=== PATIENT | male | born 1945 | race Caucasian/White ===

== ENCOUNTER 2024-06-01 17:24 | Inpatient (IN) | payer MEDICARE, OTHER, SELFPAY ==
[2024-06-01 17:25] VITALS: BP 125/90; PULSE 84; RESP 18; TEMP 36.8; O2SAT 99
--- NOTE | 2024-06-01 17:30 | RAD_ITS ---
PROCEDURE: CHEST PA AND LATERAL 06/01/2024 REASON FOR EXAM: STROKE TECHNIQUE: Frontal and lateral views of the chest. FINDINGS: Hardware: None Heart: The heart size is normal. Mediastinum: The mediastinal contour is unremarkable. Lungs: The lungs are clear. Bones: The bones are unremarkable. RAD/Chest PA and Lateral IMPRESSION: NEGATIVE CHEST Reading Location: [id number]
--- NOTE | 2024-06-01 17:30 | EKG12_ITS ---
Test Reason : GEN ILL Blood Pressure : */* mmHG Vent. Rate : 76 BPM Atrial Rate : 76 BPM P-R Int : 166 ms QRS Dur : 92 ms QT Int : 402 ms P-R-T Axes : 9 53 14 degrees QTcB Int : 452 ms Normal sinus rhythm Normal ECG Confirmed by Hector Wild ([id number]), video effects editor MANDO DONOHUE ([id number]) on 06/04/2024 6:54:47 AM Referred By: Confirmed By: Hector Wild
[2024-06-01 18:28] LABS: Absolute Lymphocyte Count 2.31 X10^3/uL (0.83-4.51); Absolute Neutrophil Count 6.1 X10^3/uL (2.0-7.7); Basophil# 0.06 X10^3/uL; Basophil% 0.6 % (0-1); Eosinophil# 0.05 X10^3/uL; Eosinophils% 0.5 % (0-5); Hematocrit 45.7 % (40-54); Lymphocyte # 2.31 X10^3/ul (0.83-4.51); Lymphocyte % 24.7 % (19-41); Mean Corpuscular Hgb 29.4 pg (27.0-32.0); Mean Platelet Vol. 9.6 fl (6.2-12.0); Monocyte# 0.76 X10^3/uL; Monocyte% 8.1 % (0-10); NRBC Flagged by Analyzer 0 % (0-5); Neutrophil # 6.12 X10^3/uL (2.7-7.7); Neutrophil % 65.6 % (47-70); Platelet Count 242 K/mm3 (150-450); RBC Distribution Width CV 14.1 % (11.6-14.6); RBC Distribution Width SD 42.9 fl (35.1-43.9); Red Blood Count 5.44 M/mm3 (4.6-6.2); White Blood Count 9.4 K/mm3 (4.4-11.0)
[2024-06-01 18:39] LABS: Prothrombin Time (Protime)PT. 13.3 SECONDS (11.7-14.9)
[2024-06-01 19:01] LABS: Anion Gap 13 (5-15); BUN 16 mg/dL (4-19); BUN/Creat Ratio 17.2 RATIO (10-20); Calcium,Total 9.3 mg/dL (7.6-11.0); Carbon Dioxide 19.8 mmol/L (21.0-32.0); Chloride 98 mmol/L (98-108); Creatinine, Serum 0.93 mg/dL (0.70-1.20); EST Glomerular Filtration Rate 85 (>60); Glucose 100 mg/dL (70-99); Potassium 4.5 mmol/L (3.3-5.1); Sodium Level 130 mmol/L (133-145)
--- NOTE | 2024-06-01 19:56 | EX.ED.DYSGE1 ---
HPI <Dr. Marc Betancourt DO - Last Filed: 06/01/24 23:35> History of Present Illness Chief Complaint: General Illness Informant: patient Onset/Context/Timing Onset: Weeks Context: Gradual Onset Timing: Continuous Quality: Weak, shaky Location: Generalized Worsened by: Nothing Relieved by: Nothing Narrative Narrative: Patient presents with generalized muscle pain that has been getting worse for the past 1-1/2 weeks. Patient states it is gradually getting worse. Patient states he feels weak and shaky. Patient states nothing makes it better and nothing makes it worse. Patient states he has been seen for this at a different emergency department. Patient states he was diagnosed with sinusitis and was placed on a nasal spray and decongestant. Patient states he was taking that with no relief. Patient states he followed up with his primary care physician who prescribed him doxycycline for the sinus infection. Patient states this has not helped. Patient admits to some subjective chills. Patient states he followed up with his managing director atlas today for his routine glaucoma check. Patient states that his managing director atlas told him to come to the emergency department for further evaluation because he does not look well. Patient admits to some nausea and vomiting. Patient mitts to decreased urine output. Patient admits to headache. PFSH <Dr. Marc Betancourt DO - Last Filed: 06/01/24 23:35> PFSH Medical History (Updated 06/02/24 @ 00:[address] Dallas Henderson DO) Hypercholesterolemia Glaucoma Allergy/AdvReac Type Severity Reaction Status Date / Time brimonidine Allergy Intermediate Itching Verified 06/01/24 17:27 sildenafil (From Viagra) AdvReac Intermediate HEADACHE Verified 06/01/24 17:27 Surgical History (Updated 06/01/24 @ 22:[address] Marc Betancourt DO) Status post glaucoma surgery Hx of inguinal herniorrhaphy Social History Smoking Status: Never smoker ROS <Dr. Marc Betancourt DO - Last Filed: 06/01/24 23:35> ROS ED Constitutional Constitutional ED: Reports chills; Denies fever(s) Eyes Eyes: Reports blurry vision; Denies change in vision ENT ENT ED: Denies rhinorrhea or sore throat Cardiovascular Cardiovascular: Denies chest pain or palpitations Respiratory/Chest Respiratory/Chest: Denies cough or dyspnea Gastrointestinal Gastrointestinal: Reports nausea and vomiting Genitourinary Genitourinary ED: Denies dysuria or hematuria Musculoskeletal Musculoskeletal: Reports myalgias Integumentary Denies abscess or rash Neurologic Neurologic: Reports headache(s); Denies weakness Allergic/Immunologic Allergic/Immunologic ED: Denies mouth swelling or urticaria EXAM <Dr. Marc Betancourt, DO - Last Filed: 06/01/24 23:35> Physical Exam Const Vital Signs: 06/01/24 17:25 06/01/24 21:06 06/01/24 21:06 Temperature 98.2 F Temperature Source Temporal Pulse Rate 84 82 Respiratory Rate 18 13 Respiratory Effort Normal Respiratory Pattern Normal Blood Pressure 125/90 H 118/80 Blood Pressure Mean 101 92 Pulse Ox 99 98 Oxygen Delivery Method Room Air 06/01/24 23:07 Temperature Temperature Source Pulse Rate Respiratory Rate Respiratory Effort Respiratory Pattern Blood Pressure 138/79 H Blood Pressure Mean 98 Pulse Ox Oxygen Delivery Method Positive well nourished and well developed General Appearance ED: well developed and NAD HEENT Reports moist mucous membranes Neck supple and no JVD Resp normal respiratory effort and clear to auscultation bilaterally Cardio regular rate and regular rhythm GI non-tender and non-distended Palpation: soft Extremity normal to inspection General Extremety ED: Negative for edema or tenderness General Extremity: Negative for edema Neuro oriented x3, CN's II-XII intact bilaterally and no sensory deficits noted Sensorium / Orientation: alert Motor Exam: general weakness Psych mental status grossly normal <Dr. Dallas Henderson, DO - Last Filed: 06/02/24 00:20> Physical Exam Const Vital Signs: 06/01/24 17:25 06/01/24 21:06 06/01/24 21:06 Temperature 98.2 F Temperature Source Temporal Pulse Rate 84 82 Respiratory Rate 18 13 Respiratory Effort Normal Respiratory Pattern Normal Blood Pressure 125/90 H 118/80 Blood Pressure Mean 101 92 Pulse Ox 99 98 Oxygen Delivery Method Room Air 06/01/24 23:07 Temperature Temperature Source Pulse Rate Respiratory Rate Respiratory Effort Respiratory Pattern Blood Pressure 138/79 H Blood Pressure Mean 98 Pulse Ox Oxygen Delivery Method MDM <Dr. Marc Betancourt, DO - Last Filed: 06/01/24 23:35> [facility] Narrative Medical decision making narrative: Differential diagnosis includes cardiac dysrhythmia, cardiac ischemia, pneumonia, stroke, electrolyte abnormality, coagulopathy, urinary tract infection, and viral illness. EKG will be obtained to assess for cardiac dysrhythmia and cardiac ischemia. Chest x-ray will be obtained to assess for pneumonia and bronchitis. CT scan of the brain will be obtained to assess for stroke and intracranial bleeding. CBC will be obtained to assess for leukocytosis and anemia. Basic metabolic profile will be obtained to assess for electrolyte abnormality and renal function. PT with INR PTT will be obtained to assess for coagulopathy. Urinalysis will be obtained to assess for urinary tract infection and hematuria. COVID-19, influenza, and RSV PCR will be obtained to assess for viral illness. Lab Data Attestation: I reviewed the patient's lab results. Lab results narrative: CBC was reviewed and was within normal limits. Basic metabolic profile was reviewed. Sodium was slightly low at 130. Glucose was 100. The remainder was essentially within normal limits. PT with INR and PTT were reviewed and were within normal limits. Initial high-sensitivity troponin was reviewed and was 25. Urinalysis was reviewed. There is no evidence of urinary tract infection or hematuria. Labs: Laboratory Results - last 24 hr 06/01/24 06/01/24 06/01/24 18:06 22:40 23:23 WBC 9.4 RBC 5.44 Hgb 16.0 Hct 45.7 MCV 84.0 MCH 29.4 MCHC 35.0 RDW Std Deviation 42.9 RDW Coeff of Tj 14.1 Plt Count 242 MPV 9.6 Immature Gran % (Auto) 0.500 Neut % (Auto) 65.6 Lymph % (Auto) 24.7 Young % (Auto) 8.1 Eos % (Auto) 0.5 Baso % (Auto) 0.6 Absolute Neuts (auto) 6.1 Absolute Lymphs (auto) 2.31 Nucleated RBC % 0 PT 13.3 INR 1.0 APTT 26.3 Sodium 130 L Potassium 4.5 Chloride 98 Carbon Dioxide 19.8 L Anion Gap 13 BUN 16 Creatinine 0.93 Est GFR (MDRD) Non-Af 85 BUN/Creatinine Ratio 17.2 Glucose 100 H Calcium 9.3 Troponin T High Sens 25 H Cancelled Troponin T Hi Sens 2 Hr 23 H Urine Color Yellow Urine Clarity Clear Urine pH 6.5 Ur Specific [place] 1.015 Urine Protein 15 H Urine Glucose (UA) Normal Urine Ketones 50 H Urine Occult Blood Negative Urine Nitrite Negative Urine Bilirubin Negative Urine Urobilinogen 1 H Ur Leukocyte Esterase Negative Urine RBC 0 SEEN Urine WBC 0-5 SEEN Ur Squamous Epith Cells 0 SEEN Urine Bacteria 1+ Urine Mucus 0 SEEN Radiography Chest X-Ray - ED: 2 View, Read by ED Physician, Read by Radiologist and No Acute Disease Diagnostic Testing: Clinical Impression(s) from Imaging Studies Chest X-Ray 06/01/24 17:30 IMPRESSION: NEGATIVE CHEST Reading Location: [id number] Brain CT 06/01/24 20:19 IMPRESSION: NO ACUTE FINDINGS [facility] chest x-ray was obtained. There are 2 views. On my independent interpretation, lung samaniego are clear. There is normal cardiac silhouette. Bony thorax is normal. There is no acute process noted. Radiologist also interpreted the x-ray and agrees. CT scan of the brain was obtained. There is no acute intracranial abnormality. This was interpreted by the radiologist and was also independently reviewed by myself. EKG Initial EKG: Attestation: I personally reviewed and interpreted this EKG as follows: Interpretation: Sinus Rhythm (76) and No Acute Injury Pattern Comments: EKG was obtained. On my independent interpretation, it showed a normal sinus rhythm with a rate of 76. IN interval, QRS interval, and QTc intervals were all normal. [place] was normal. There are no acute ST or T wave changes. Prior EKG tracings: not available for review Prior: No Prior Treatment and Re-Evaluation :: Patient was given IV fluids. Patient was advised of his findings. Patient ambulated here in the emergency department. Patient was somewhat unsteady. Patient states he has access to a walker at home and would prefer to go home. Patient was advised of the repeat troponin test. If the repeat troponin is also elevated, would recommend admission to the hospital for further evaluation. Since the patient wants to go home and does not want to be admitted to the hospital, if the repeat troponin is normal, I would agree with discharging the patient. Family does have concerns that the patient would not be able to go up stairs at home. I did offer admission to the hospital for physical therapy. Family will discuss this while waiting for the repeat troponin. Care of the patient will be turned over to the oncoming physician pending repeat troponin results. <Dr. Dallas Henderson, DO - Last Filed: 06/02/24 00:20> [facility] Lab Data Labs: Laboratory Results - last 24 hr 06/01/24 06/01/24 06/01/24 18:06 22:40 23:23 WBC 9.4 RBC 5.44 Hgb 16.0 Hct 45.7 MCV 84.0 MCH 29.4 MCHC 35.0 RDW Std Deviation 42.9 RDW Coeff of Tj 14.1 Plt Count 242 MPV 9.6 Immature Gran % (Auto) 0.500 Neut % (Auto) 65.6 Lymph % (Auto) 24.7 Young % (Auto) 8.1 Eos % (Auto) 0.5 Baso % (Auto) 0.6 Absolute Neuts (auto) 6.1 Absolute Lymphs (auto) 2.31 Nucleated RBC % 0 PT 13.3 INR 1.0 APTT 26.3 Sodium 130 L Potassium 4.5 Chloride 98 Carbon Dioxide 19.8 L Anion Gap 13 BUN 16 Creatinine 0.93 Est GFR (MDRD) Non-Af 85 BUN/Creatinine Ratio 17.2 Glucose 100 H Calcium 9.3 Troponin T High Sens 25 H Cancelled Troponin T Hi Sens 2 Hr 23 H Urine Color Yellow Urine Clarity Clear Urine pH 6.5 Ur Specific [place] 1.015 Urine Protein 15 H Urine Glucose (UA) Normal Urine Ketones 50 H Urine Occult Blood Negative Urine Nitrite Negative Urine Bilirubin Negative Urine Urobilinogen 1 H Ur Leukocyte Esterase Negative Urine RBC 0 SEEN Urine WBC 0-5 SEEN Ur Squamous Epith Cells 0 SEEN Urine Bacteria 1+ Urine Mucus 0 SEEN Radiography Diagnostic Testing: Clinical Impression(s) from Imaging Studies Chest X-Ray 06/01/24 17:30 IMPRESSION: NEGATIVE CHEST Reading Location: [id number] Brain CT 06/01/24 20:19 IMPRESSION: NO ACUTE FINDINGS Reading Location: [facility] Management Discussion w/another healthcare provider: Hospitalist Treatment and Re-Evaluation :: Patient was given IV fluids. Patient was advised of his findings. Patient ambulated here in the emergency department. Patient was somewhat unsteady. Patient states he has access to a walker at home and would prefer to go home. Patient was advised of the repeat troponin test. If the repeat troponin is also elevated, would recommend admission to the hospital for further evaluation. Since the patient wants to go home and does not want to be admitted to the hospital, if the repeat troponin is normal, I would agree with discharging the patient. Family does have concerns that the patient would not be able to go up stairs at home. I did offer admission to the hospital for physical therapy. Family will discuss this while waiting for the repeat troponin. Care of the patient will be turned over to the oncoming physician pending repeat troponin results. Patient was signed out to me while awaiting the results of his delta troponin. The first troponin was 25 the 2-hour delta down trended slightly to 23 going against a an acute coronary syndrome at this time. However the patient is having recurrent intermittent chest discomfort and he is also unstable on his feet and a high fall risk. Therefore at this time with his recurrent intermittent chest symptoms and fact that his weakness and difficulty ambulating are worsening I do feel that is safest and most appropriate disposition is admission for continued cardiac workup with potential PT OT eval and even potential rehab placement. Secondary to this the plan of care was discussed with the hospitalist who agrees to accept the patient for further evaluation. Plan of care was discussed with patient and family and they are agreeable to it Discharge Plan Triage Chief Complaint: General Illness Other Complaint: Eye Problem ED Provider: Marc Betancourt Dx/Rx/DC Orders Clinical Impression: General weakness, Myalgia, Nonspecific chest pain, Inability to walk Primary Care Provider: Mando Sher Referrals: Mando Sher MD [Primary Care Provider] - Print Language: [place] Disposition Disposition: Acute Care Hospital [facility]
[2024-06-01 19:57] LABS: Partial Thromboplast Time 26.3 Seconds (24.1-36.2)
--- NOTE | 2024-06-01 20:19 | CT_ITS ---
PROCEDURE: BRAIN/HEAD WITHOUT CONTRAST 06/01/2024 REASON FOR EXAM: VISUAL CHANGES TECHNIQUE: Head CT without intravenous contrast. Coronal and Sagittal reconstruction series were provided. One or more dose reduction techniques were used (e.g., Automated exposure control, adjustment of the mA and/or kV according to patient size, use of iterative reconstruction technique. RADIATION DOSE SUMMARY: CTDlvol: 45 mGy DLP: 829 mGycm COMPARISON: None FINDINGS: Brain: Normal CSF Spaces: Mild generalized cerebral atrophy Sinuses/Mastoids: Clear at visualized levels Bones: Unremarkable CT/Brain/Head without Contrast IMPRESSION: NO ACUTE FINDINGS Reading Location: [facility]
[2024-06-01 20:20] VITALS: BP 101/77; BP 113/63; BP 115/72; PULSE 73; PULSE 80; PULSE 82
[2024-06-01] MEDS: 0.9% Normal Saline (1000mL) 1,000 ML 1000 ML IV ×2 (21:05→23:25)
[2024-06-01 21:06] VITALS: BP 118/80; PULSE 82; RESP 13; O2SAT 98; BMI 31.6
[2024-06-01 21:13] LABS: Troponin T High Sensitivity 25 ng/L (<=22)
[2024-06-01 22:58] LABS: Mucous, Urine 0 SEEN /hpf (<or=2+); Red Blood Cells-Urine 0 SEEN /hpf (0-5); Squamous Epithelial Cells - UA 0 SEEN /hpf (0-5)
[2024-06-01 23:04] LABS: Color, Urine Yellow (Yellow); Glucose, Dipstick Normal (Normal); Ketone-Dipstick 50 mg/dl (Negative); Leukocyte Esterase-Dipstick Negative /ul (Negative); Nitrite-Dipstick Negative (Negative); Occult Blood-Urine Negative /ul (Negative); Protein-Dipstick 15 mg/dl (Negative); Specific Gravity, Urine 1.015 (1.002-1.030); Urine Bilirubin Dipstick Negative (Negative); Urine Clarity Clear (Clear); Urine Urobilinogen 1 mg/dl (Normal); Urine pH 6.5 (5.0 - 8.0)
[2024-06-01 23:07] VITALS: BP 138/79
[2024-06-01 23:28] LABS: Bacteria 1+ /hpf (None Seen); White Blood Cells 0-5 SEEN /hpf (0-5)
[2024-06-01 23:55] LABS: Troponin T High Sens 2 HR 23 ng/L (<=22)
[2024-06-02] VITALS (7 sets, daily range): BP systolic 111–143; BP diastolic 69–83; PULSE 69–80; RESP 13–18; TEMP 36.2–36.9; O2SAT 77–98; BMI 30.9
--- NOTE | 2024-06-02 00:20 | HP.PCM.HOS_ITS ---
[facility] - General General Date of Admission: 06/02/24 Date of Service: 06/02/24 Chief Complaint: Worsening weakness with difficulty ambulating HPI Narrative DAVI HANDLEY, is a 79 M who presented to [facility] ED on 06/02/2024 with worsening weakness with difficulty ambulating. Patient lives at home with his . He is typically active at baseline and as recently as April was out chopping wood. He lives in a two-story house and was navigating steps without issue at that time. He had an upper respiratory illness in early May and since then he has become persistently weaker. He now has significant instability with walking and generally feels weak all over. He also reports that over the past few weeks he has noticed headache type pain in his bilateral sinus areas above his eyes and difficulty keeping his eyelids open. He denies any overt vision loss. He does have a history of glaucoma with prior procedures on his left eye and follows with the [facility] for this. In the ED today he was hemodynamically stable on room air. CBC was unremarkable. BMP showed sodium 130, was otherwise unremarkable. Patient did report mild intermittent chest discomfort as well; troponin trend 25 > 23 > 21 and EKG unremarkable. Chest x-ray unremarkable. Given these findings, hospitalist was contacted for admission. I saw the patient at bedside in the ED, and daughter were present. Patient was fatigued appearing but otherwise sitting back comfortably in bed, conversing normally and in no acute distress. Notes that he receives most of his care through [facility]; reviewed [facility] records. Does have history of polymyalgia rheumatica diagnosed about 10 years ago. At that time he presented with somewhat similar symptoms (though not as severe) and improved significantly with steroids. He has not had any relapses of PMR since then. Denies history of GCA. He denies any specific hip girdle or shoulder girdle weakness. Denies any fevers or chills. States his appetite has been poor, has not been eating or drinking very well. No other acute concerns at this time. [facility] Medical History (Updated 06/02/24 @ 00:[address] Dallas Henderson, ) Hypercholesterolemia Glaucoma Home Medications ?Medication ?Instructions ?Recorded ?Last Taken ?Type acetazolamide 250 mg tablet 250 mg PO BID 06/02/24 Unk nown History alprazolam 0.5 mg tablet 0.5 mg PO TID PRN PRN anxiet y 06/02/24 Unknown History ascorbic acid (vitamin C) 1,000 mg 1 g PO DAILY Unknown History capsule coQ10 (liposomal ubiquinol) PO DAILY 06/02/24 Unknown History dorzolamide 22.3 mg-timolol 6.8 1 drp LEFT EYE BID Unknown History mg/mL eye drops doxycycline hyclate 100 mg tablet 100 mg PO BID Unknown History gabapentin 100 mg capsule 200 mg PO TID 06/02/24 Unkno wn History meclizine 25 mg tablet 25 mg PO TID PRN 06/02/24 Un known History multivitamin (Daily Multi-Vitamin 1 tab PO DAILY 06/02 Unknown History tablet) oxymetazoline 0.05 % nasal spray 2 spray intranasal Q1 2H PRN PRN 06/02/24 Unknown History (Afrin (oxymetazoline)) congestion rosuvastatin 10 mg tablet 10 mg PO QHS 06/02/24 Unknow n History venlafaxine 150 mg 300 mg PO DAILY 06/02/24 Unk nown History capsule,extended release 24 hr Allergy/AdvReac Type Severity Reaction Status Date / Time brimonidine Allergy Intermediate Itching Verified 06/01/24 17:27 sildenafil (From Viagra) AdvReac Intermediate HEADACHE Verified 06/01/24 17:27 Surgical History (Updated 06/01/24 @ 22:[address] Marc Betancourt, ) Status post glaucoma surgery Hx of inguinal herniorrhaphy Social History Smoking Status: Never smoker ROS Constitutional Constitutional: Reports fatigue and weakness; Denies chills or fever(s) Eyes Eyes: Denies blurry vision, change in vision, discharge from eye(s) or loss of vision ENT HEENT: Reports headache(s) and sinus pressure; Denies sore throat Cardiovascular Cardiovascular: Denies chest pain, dyspnea on exertion, edema, lightheadedness or palpitations Respiratory/Chest Respiratory/Chest: Denies cough, shortness of breath at rest, shortness of breath with exertion or wheezing Gastrointestinal Gastrointestinal: Denies abdominal pain Musculoskeletal Musculoskeletal: Reports myalgias; Denies arthralgias, back pain or joint pain Neurologic Neurologic: Reports abnormal gait; Denies dizziness, focal weakness, headache(s), numbness or paresthesias Vital Signs Vital Signs Vital Signs: 06/01/24 17:25 06/01/24 21:06 06/01/24 21:06 Temperature 98.2 F Temperature Source Temporal Pulse Rate 84 82 Respiratory Rate 18 13 Respiratory Effort Normal Respiratory Pattern Normal Blood Pressure 125/90 H 118/80 Blood Pressure Mean 101 92 Pulse Ox 99 98 Oxygen Delivery Method Room Air 06/01/24 23:07 Temperature Temperature Source Pulse Rate Respiratory Rate Respiratory Effort Respiratory Pattern Blood Pressure 138/79 H Blood Pressure Mean 98 Pulse Ox Oxygen Delivery Method Weight Weight: 91.8 kg Body Mass Index (BMI) 31.6 Physical Exam Const alert, oriented x3, no apparent distress and average body habitus Constitutional Narrative: Elderly male, class I obesity, fatigued appearing, otherwise sitting back comfortably in bed, conversing normally, in no acute distress. General Appearance: cooperative and comfortable HEENT normocephalic, head/scalp atraumatic, hearing grossly normal bilaterally and nasal mucous membranes and turbinates normal Eyes PERRL, EOMs intact bilaterally and conjunctivae normal Neck full ROM Chest inspection of chest normal Resp normal respiratory effort, normal air movement, no use of accessory muscles and clear to auscultation bilaterally Cardio regular rate, regular rhythm, no murmurs and peripheral pulses 2+ throughout GI normal to inspection, nondistended, normoactive bowel sounds, soft to palpation, non-tender and non-distended Back/Spine normal ROM Extremity normal to inspection and no pedal edema Skin no rashes or lesions noted Neuro moves all extremities Speech: speech normal Psych mental status grossly normal Psych Narrative: Flat affect. Results Lab / Micro Data 06/01/24 18:06 06/01/24 18:06 Labs: Laboratory Results - last 24 hr 06/01/24 18:06: WBC 9.4, RBC 5.44, Hgb 16.0, Hct 45.7, MCV 84.0, MCH 29.4, MCHC 35.0, RDW Std Deviation 42.9, RDW Coeff of Tj 14.1, Plt Count 242, MPV 9.6, Immature Gran % (Auto) 0.500, Neut % (Auto) 65.6, Lymph % (Auto) 24.7, [place] % (Auto) 8.1, Eos % (Auto) 0.5, Baso % (Auto) 0.6, Absolute Neuts (auto) 6.1, Absolute Lymphs (auto) 2.31, Nucleated RBC % 0, PT 13.3, INR 1.0, APTT 26.3, S odium 130 L, Potassium 4.5, Chloride 98, Carbon Dioxide 19.8 L, Anion Gap 13, BUN 16, Creatinine 0.93, Est GFR (MDRD) Non-Af 85, BUN/Creatinine Ratio 17.2, G lucose 100 H, Calcium 9.3, Troponin T High Sens 25 H 06/01/24 22:40: Urine Color Yellow, Urine Clarity Clear, Urine pH 6.5, Ur Specific [place] 1.015, Urine Protein 15 H, Urine Glucose (UA) Normal, Urine Ketones 50 H, Urine Occult Blood Negative, Urine Nitrite Negative, Urine Bilirubin Negative, Urine Urobilinogen 1 H, Ur Leukocyte Esterase Negative, Urine RBC 0 SEEN, Urine WBC 0-5 SEEN, Ur Squamous Epith Cells 0 SEEN, Urine Bacteria 1+, Urine Mucus 0 SEEN 06/01/24 23:23: Troponin T High Sens Cancelled, Troponin T Hi Sens 2 Hr 23 H Micro: Microbiology 06/01/24 21:00 Mucosa - Nose SARS-CoV-2, Influenza & RSV (PCR) - Final Imaging Radiology Impression Chest X-Ray 06/01/24 17:30 IMPRESSION: NEGATIVE CHEST Reading Location: [facility] Brain CT 06/01/24 20:19 IMPRESSION: NO ACUTE FINDINGS [facility] Assessment & Plan Assessment/Plan (1) General weakness: (2) Inability to walk: (3) Myalgia: (4) Nonspecific chest pain: PLAN: Plan Patient is a 79-year-old male who presented to [facility] ED on with worsening weakness with difficulty ambulating. 1. Generalized weakness with difficulty ambulating, concern for polymyalgia rheumatica relapse, concern for new onset giant cell arteritis ? Admit under observation status to PCU. PT/OT/case management consulted. History of polymyalgia rheumatica diagnosed about 10 years ago; similar presentation but not as severe and responded well to steroids. No relapses since then. Presentation seems consistent with relapse possibly secondary to recent viral URI. ESR and CRP ordered. No vision loss but with sinus related headaches I do have concern for new onset GCA. Will treat with prednisone 40 mg daily for now. Monitor closely. Can consider further workup for GCA as needed. 2. Chest discomfort ? Reported intermittent chest discomfort over the past several days. No prior cardiac history. EKG normal. Troponin trend 25 > 23 > 21. Suspect this may be secondary to inflammation in setting of possible PMR relapse as noted above. Treatment as above. Continue cardiac monitoring. No further cardiac workup at this time. 3. Mild hyponatremia ? Sodium 130 on admit. Suspect secondary to recent poor p.o. intake. Given 2 L of IV fluids in the ED, follow-up a.m. sodium level. Chronic medical conditions: ? Class I obesity: BMI 31 on admit. Complicates hospital course, care and prognosis. Encouraged weight loss. ? Hyperlipidemia: Continue home statin. ? Depression: Noted that venlafaxine dose had been increased from 150 mg daily to 300 mg daily on 06/01 by PCP. Had been on the 150 mg daily dose for about 10 years. Will continue 150 mg dose while inpatient. ? Neuropathy: Continue home gabapentin. ? Glaucoma: Continue home eyedrops. DVT prophylaxis: Lovenox CODE STATUS: Full code, verified Expected disposition: Home with home health care versus SNF, 1 to 2 days Total clinical time spent by myself addressing the patient's medical issues, reviewing all the data, and collaborating with patient's care team: 75 minutes. Charges/Coding Visit Charges Inpatient E&M: 00330 Init Hosp L3
[2024-06-02 00:32] LABS: Troponin T High Sens 4 HR 21 ng/L (<=22)
[2024-06-02 01:12] LABS: CRP < 3.00 mg/L (0.0-3.0)
[2024-06-02 02:02] LABS: Erythrocyte Sedimentation Rate 22 mm/hr (0-20)
[2024-06-02] MEDS: predniSONE 20 MG Tablet 40 MG PO (02:24)
[2024-06-02] MEDS: Gabapentin 100 MG Capsule 200 MG PO ×3 (05:34→20:16)
[2024-06-02 07:42] LABS: Hematocrit 43.6 % (40-54); Hemoglobin 14.9 g/dL (13.0-16.5); Mean Corp Hgb Conc 34.2 g/dL (32-36); Mean Corpuscular Hgb 29.3 pg (27.0-32.0); Mean Corpuscular Volume 85.7 fL (80-94); Mean Platelet Vol. 10.2 fl (6.2-12.0); Platelet Count 217 K/mm3 (150-450); RBC Distribution Width CV 14.1 % (11.6-14.6); RBC Distribution Width SD 44.1 fl (35.1-43.9); Red Blood Count 5.09 M/mm3 (4.6-6.2); White Blood Count 7.8 K/mm3 (4.4-11.0)
[2024-06-02 08:47] LABS: Anion Gap 11 (5-15); BUN 17 mg/dL (4-19); BUN/Creat Ratio 20.8 RATIO (10-20); Calcium,Total 8.7 mg/dL (7.6-11.0); Carbon Dioxide 18.8 mmol/L (21.0-32.0); Chloride 102 mmol/L (98-108); Creatinine, Serum 0.79 mg/dL (0.70-1.20); EST Glomerular Filtration Rate 91 (>60); Estimated Creatinine Clearance 82.58 ml/min (50-250); Glucose 94 mg/dL (70-99); Potassium 4.2 mmol/L (3.3-5.1); Sodium Level 132 mmol/L (133-145)
[2024-06-02] MEDS: Ascorbic Acid 500 MG Tablet 1000 MG PO (09:14)
[2024-06-02] MEDS: Enoxaparin 40 MG/0.4 ML Syringe SC (09:14)
[2024-06-02] MEDS: Multivitamins,Therapeutic Tablet 1 TABLET PO (09:14)
[2024-06-02] MEDS: Venlafaxine XR 150 MG Capsule PO ×2 (09:14→16:17)
[2024-06-02] MEDS: Dorzolamide HCL/Timolol 10 ml Bottle 1 DRP LEFT EYE ×2 (09:15→18:39)
--- NOTE | 2024-06-02 12:15 | CHAPLAIN ---
Type of Pastoral Visit _x__ Initial Visit ___ Follow-up Visit ___ On-call Visit ___ General Patient Visit ___ Spiritual Assessment ___ Family Conference ___ Bereavement ___ Rapid Response ___ Code Blue ___ Other (describe below) Pastoral Care Referral From _x__ Patient ___ Family ___ Nurse ___ Physician ___ Load Blocker ___ Order Builder Loader ___ Other (describe below) Sacrament/Intervention _x__ Active listening ___ Anointing ___ Yazdanism ___ Bereavement ___ Communion _x__ Rosie exploration ___ _x__ Life review _x__ Prayer ___ Reconciliation ___ Sacrament of Sick _x__ Supportive presence ___ Wedding ___ Other (describe below) Pastoral Comments patient appeared to be napping but easily awoke to his name; pt states that I have been napping a lot lately; pt states early on that he had gone to his PCP and was given a higher dose of depression medicine; pt says that since the beginning of the month he has had a change in strength and ability; 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
[2024-06-02] MEDS: Ensure Plus High Protein 120 ML LIQUID PO ×2 (13:19→20:18)
--- NOTE | 2024-06-02 15:06 | PN_ITS ---
Subjective Subjective Patient seen and examined. He still complained of generalized weakness but said he felt much better after he was started on the steroids. Review of systems otherwise negative. He has remained hemodynamically stable. He is asking for his Effexor to be increased from 150 mg daily to his home dose of 300 mg daily. Objective Data Objective Data Vital Signs: Vital Signs Temp Pulse Resp BP Pulse Ox O2 Del Method 97.4 F L 72 16 118/76 77 Room Air 06/02/24 13:00 06/02/24 13:00 06/02/24 13:00 06/02/24 13:00 06/02/24 13:00 06/02/24 14:00 Oxygen Delivery Method Room Air Weight: 197 lb 8.547 oz Body Mass Index (BMI) 30.9 Intake & Output: Intake and Output for Last 24 Hours 05/31/24 06/01/24 06/02/24 23:59 23:59 23:59 Intake Total 1000 / 1000 1000 / 1000 Output Total 850 / 850 Balance 1000 / 1000 150 / 150 Lab / Micro Data 06/02/24 06:41 06/02/24 06:41 Labs: Laboratory Results - last 24 hr 06/01/24 18:06: WBC 9.4, RBC 5.44, Hgb 16.0, Hct 45.7, MCV 84.0, MCH 29.4, MCHC 35.0, RDW Std Deviation 42.9, RDW Coeff of Tj 14.1, Plt Count 242, MPV 9.6, Immature Gran % (Auto) 0.500, Neut % (Auto) 65.6, Lymph % (Auto) 24.7, [place] % (Auto) 8.1, Eos % (Auto) 0.5, Baso % (Auto) 0.6, Absolute Neuts (auto) 6.1, Absolute Lymphs (auto) 2.31, Nucleated RBC % 0, ESR 22 H, PT 13.3, INR 1.0, APTT 26.3, Sodium 130 L, Potassium 4.5, Chloride 98, Carbon Dioxide 19.8 L, Anion Gap 13, BUN 16, Creatinine 0.93, Est GFR (MDRD) Non-Af 85, BUN/Creatinine Ratio 17.2, Glucose 100 H, Calcium 9.3, Troponin T High Sens 25 H 06/01/24 22:40: Urine Color Yellow, Urine Clarity Clear, Urine pH 6.5, Ur Specific [place] 1.015, Urine Protein 15 H, Urine Glucose (UA) Normal, Urine Ketones 50 H, Urine Occult Blood Negative, Urine Nitrite Negative, Urine Bilirubin Negative, Urine Urobilinogen 1 H, Ur Leukocyte Esterase Negative, Urine RBC 0 SEEN, Urine WBC 0-5 SEEN, Ur Squamous Epith Cells 0 SEEN, Urine Bacteria 1+, Urine Mucus 0 SEEN 06/01/24 23:23: Troponin T High Sens Cancelled, Troponin T Hi Sens 2 Hr 23 H 06/01/24 23:50: C-React Prot Ext Range < 3.00 06/02/24 06:41: WBC 7.8, RBC 5.09, Hgb 14.9, Hct 43.6, MCV 85.7, MCH 29.3, MCHC 34.2, RDW Std Deviation 44.1 H, RDW Coeff of Tj 14.1, Plt Count 217, MPV 10.2, Sodium 132 L, Potassium 4.2, Chloride 102, Carbon Dioxide 18.8 L, Anion Gap 11, BUN 17, Creatinine 0.79, Estim Creat Clear Calc 82.58, Est GFR (MDRD) Non-Af 91, BUN/Creatinine Ratio 20.8 H, Glucose 94, Calcium 8.7 06/02/24 23:50: Troponin T Hi Sens 4Hr 21 Micro: Microbiology 06/01/24 21:00 Mucosa - Nose SARS-CoV-2, Influenza & RSV (PCR) - Final Radiography Diagnostic Testing: Radiology Impression Chest X-Ray 06/01/24 17:30 IMPRESSION: NEGATIVE CHEST Reading Location: [id number] Brain CT 06/01/24 20:19 IMPRESSION: NO ACUTE FINDINGS Reading Location: [facility] Physical Exam Const alert, oriented x3 and no apparent distress General Appearance: cooperative HEENT normocephalic, head/scalp atraumatic, moist oral mucous membranes and oropharynx normal Eyes PERRL and EOMs intact bilaterally Neck no lymphadenopathy and supple Lymph Lymphatic: no lymphadenopathy noted and no lymphedema noted Resp normal respiratory effort, normal air movement and clear to auscultation bilaterally Cardio regular rate, regular rhythm, S1 normal heart sound, S2 normal heart sound and no murmurs GI normal to inspection, nondistended, normoactive bowel sounds, soft to palpation, non-tender and non-distended Extremity normal capillary refill, no clubbing, cyanosis or edema and no calf tenderness General Extremity: no tenderness to palpation of joints or extremities Skin General Skin Exam: no breakdown Neuro CN's II-XII intact bilaterally, no focal motor deficits and no sensory deficits noted Motor Exam: strength 5/5 throughout and general weakness Psych thought process normal, cooperative and affect normal Appearance: appropriate Assessment & Plan Assessment/Plan (1) General weakness: PLAN: Plan #Debility and weakness with failure to thrive * He does have a history of polymyalgia rheumatica and is concerned that he may have had a relapse. * Currently on p.o. prednisone. Patient states he feels much better after the prednisone was started. ESR and CRP ordered. * He has had some blurred vision but says this is chronic and is due to glaucoma. There was concern for giant cell arteritis on admission but I think it is more likely due to his glaucoma cc this is chronic. * PT OT on board. Fall precautions. #Chest discomfort: * Has resolved. He did not complain of any chest discomfort today. * Troponins were not elevated. Will monitor for now. * Sublingual nitroglycerin as needed. * There was concern that this may be related to inflammation in the setting of polymyalgia rheumatica relapse. #Hyponatremia: Resolving. #Hyperlipidemia: On statin #Depression: On venlafaxine 300 mg daily. History of glaucoma: Currently on eyedrops. Follows with eye doctor on outpatient basis. DVT prophylaxis: Lovenox Disposition: Will depend on how he does with therapy. Charges/Coding Visit Charges Inpatient E&M: 84103 Subs Hosp L2
[2024-06-02] MEDS: Atorvastatin Calcium 20 MG Tablet PO (20:16)
[2024-06-03 03:30] VITALS: BP 123/71; PULSE 72; RESP 18; TEMP 36.6; O2SAT 100
[2024-06-03] MEDS: Gabapentin 100 MG Capsule 200 MG PO ×3 (05:50→22:51)
[2024-06-03 06:48] LABS: Absolute Lymphocyte Count 2.89 X10^3/uL (0.83-4.51); Absolute Neutrophil Count 5.9 X10^3/uL (2.0-7.7); Basophil# 0.05 X10^3/uL; Basophil% 0.5 % (0-1); Eosinophil# 0.03 X10^3/uL; Eosinophils% 0.3 % (0-5); Hematocrit 41.2 % (40-54); Lymphocyte # 2.89 X10^3/ul (0.83-4.51); Lymphocyte % 29.2 % (19-41); Mean Corpuscular Hgb 29.2 pg (27.0-32.0); Monocyte# 0.93 X10^3/uL; Monocyte% 9.4 % (0-10); NRBC Flagged by Analyzer 0 % (0-5); Neutrophil # 5.94 X10^3/uL (2.7-7.7); Neutrophil % 60.1 % (47-70); Platelet Count 221 K/mm3 (150-450); RBC Distribution Width CV 14.6 % (11.6-14.6); RBC Distribution Width SD 46.1 fl (35.1-43.9); Red Blood Count 4.79 M/mm3 (4.6-6.2); White Blood Count 9.9 K/mm3 (4.4-11.0)
[2024-06-03 07:31] LABS: Anion Gap 9 (5-15); BUN 19 mg/dL (4-19); BUN/Creat Ratio 21.3 RATIO (10-20); Calcium,Total 8.8 mg/dL (7.6-11.0); Carbon Dioxide 22.7 mmol/L (21.0-32.0); Chloride 101 mmol/L (98-108); Creatinine, Serum 0.89 mg/dL (0.70-1.20); EST Glomerular Filtration Rate 88 (>60); Estimated Creatinine Clearance 74.23 ml/min (50-250); Glucose 96 mg/dL (70-99); Potassium 3.7 mmol/L (3.3-5.1); Sodium Level 133 mmol/L (133-145)
[2024-06-03 07:38] VITALS: O2SAT 96
[2024-06-03] MEDS: Multivitamins,Therapeutic Tablet 1 TABLET PO (08:37)
[2024-06-03] MEDS: Venlafaxine XR 150 MG Capsule 300 MG PO (08:37)
[2024-06-03] MEDS: predniSONE 20 MG Tablet 40 MG PO (08:37)
[2024-06-03] MEDS: Ascorbic Acid 500 MG Tablet 1000 MG PO (08:38)
[2024-06-03] MEDS: Dorzolamide HCL/Timolol 10 ml Bottle 1 DRP LEFT EYE ×2 (08:41→17:36)
[2024-06-03] MEDS: Enoxaparin 40 MG/0.4 ML Syringe SC (08:42)
[2024-06-03] MEDS: Ensure Plus High Protein 120 ML LIQUID PO ×3 (08:42→22:51)
[2024-06-03 09:30] VITALS: BP 128/74; PULSE 70; RESP 16; TEMP 36.5; O2SAT 97
--- NOTE | 2024-06-03 10:34 | CASEMGMT ---
JADYN RODRIGUEZ Assessment: Face to Face with pt for initial transition planning/care coordination assessment. JADYN RODRIGUEZ introduced self and role at [facility], pt voices understanding and consents to assessment. Pt is A&O x4 and answers all questions appropriately at this time. Pt sitting up in chair in no distress. Care providers, pharmacy, and demographics verified/updated. Strata:1 Admitting Dx: Worsening weakness with chest discomfort PCP: Nikky Specialists: Denies Preferred Pharmacy: [facility] Insurance: [facility], amBX Plan Prescription Benefit: yes LNOK: , Alisha; Daughter, Pushpa Living Arrangements: Pt lives with in a 2 story home with 4 steps to enter. ADLs: Pt reports I with ADLs and IADLs. Transportation: Pt provides transportation. DME: [employer], Shower chair HHC/SNF: Denies Hx of Pt states no concerns with going home at time of dc. JADYN RODRIGUEZ discussed OP therapy with pt, pt would like a script and wants to self schedule once he is DC'd. JADYN RODRIGUEZ informed JADYN RODRIGUEZ on floor. Pt states no further concerns/needs. CM to follow. Advised pt to ask CM if any further question/concerns/needs arise, voices understanding. Pt Goal: Home Plan: Home with OP therapy, follow for safe DC. Seamus SALAMANCA CM
[2024-06-03] MEDS: Tamsulosin HCl 0.4 MG Capsule PO ×2 (11:19→17:36)
--- NOTE | 2024-06-03 14:37 | PN_ITS ---
Subjective Subjective Patient seen and examined this morning. He did say he felt well this morning. I did see patient in the presence of his nurse and he had no active complaints. He wanted to work with therapy today to see how he would do as he wanted to get better before we discussed him going home. Review of symptoms otherwise negative. He still has a persistent blurred vision but he said this was due to the glaucoma. However I was informed by his nurse this afternoon the patient's came in and asked that patient have an MRI because he was sent in by his eye doctor to rule out a stroke. Patient was also saying that he now felt his blurred vision was not due to his glaucoma and that he also felt much more weak and unsteady. MRI of the brain with and without contrast therefore ordered. Objective Data Objective Data Vital Signs: Vital Signs Temp Pulse Resp BP Pulse Ox O2 Del Method 97.7 F L 70 16 128/74 H 97 Room Air 06/03/24 09:30 06/03/24 09:30 06/03/24 09:30 06/03/24 09:30 06/03/24 09:30 06/03/24 09:30 Oxygen Delivery Method Room Air Weight: 197 lb 8.547 oz Body Mass Index (BMI) 30.9 Intake & Output: Intake and Output for Last 24 Hours 06/01/24 06/02/24 06/03/24 23:59 23:59 23:59 Intake Total 1000 / 1000 1960 / 1960 240 / 240 Output Total 2875 / 2875 250 / 250 Balance 1000 / 1000 -915 / -915 -10 / -10 Lab / Micro Data 06/03/24 06:08 06/03/24 06:08 Labs: Laboratory Results - last 24 hr 06/03/24 06:08: WBC 9.9, RBC 4.79, Hgb 14.0, Hct 41.2, MCV 86.0, MCH 29.2, MCHC 34.0, RDW Std Deviation 46.1 H, RDW Coeff of Tj 14.6, Plt Count 221, MPV 10.0, Immature Gran % (Auto) 0.500, Neut % (Auto) 60.1, Lymph % (Auto) 29.2, [place] % (Auto) 9.4, Eos % (Auto) 0.3, Baso % (Auto) 0.5, Absolute Neuts (auto) 5.9, Absolute Lymphs (auto) 2.89, Nucleated RBC % 0, Sodium 133, Potassium 3.7, Chloride 101, Carbon Dioxide 22.7, Anion Gap 9, BUN 19, Creatinine 0.89, Estim Creat Clear Calc 74.23, Est GFR (MDRD) Non-Af 88, BUN/Creatinine Ratio 21.3 H, Glucose 96, Calcium 8.8 Micro: Microbiology 06/01/24 21:00 Mucosa - Nose SARS-CoV-2, Influenza & RSV (PCR) - Final Physical Exam Const alert, oriented x3, no apparent distress and average body habitus Constitutional Narrative: flat affect General Appearance: cooperative and comfortable HEENT normocephalic, head/scalp atraumatic, hearing grossly normal bilaterally, nasal mucous membranes and turbinates normal, moist oral mucous membranes and oropharynx normal Eyes PERRL, EOMs intact bilaterally and conjunctivae normal Neck full ROM, no lymphadenopathy and supple Lymph Lymphatic: no lymphadenopathy noted and no lymphedema noted Chest inspection of chest normal Resp normal respiratory effort, normal air movement, no use of accessory muscles and clear to auscultation bilaterally Cardio regular rate, regular rhythm, S1 normal heart sound, S2 normal heart sound, no murmurs and peripheral pulses 2+ throughout GI normal to inspection, nondistended, normoactive bowel sounds, soft to palpation, non-tender and non-distended Back/Spine normal ROM Extremity normal to inspection, normal capillary refill, no clubbing, cyanosis or edema, no calf tenderness and no pedal edema General Extremity: no tenderness to palpation of joints or extremities Skin no rashes or lesions noted General Skin Exam: no breakdown Neuro CN's II-XII intact bilaterally, moves all extremities, no focal motor deficits and no sensory deficits noted Speech: speech normal Motor Exam: strength 5/5 throughout and general weakness Psych mental status grossly normal, thought process normal, cooperative and affect normal Psych Narrative: Flat affect. Mood & Affect: flat affect Assessment & Plan Assessment/Plan (1) General weakness: PLAN: Plan #Debility and weakness with failure to thrive * He does have a history of polymyalgia rheumatica and is concerned that he may have had a relapse. * Currently on p.o. prednisone. Patient states he feels much better after the prednisone was started. ESR and CRP ordered. * He has had some blurred vision but said yesterday that this was chronic and is due to glaucoma. * However today patient was told me this afternoon that family wanted to rule out stroke also as they felt his blurred vision was worse than usual. * MRI of the brain with and without contrast ordered. Will also order a CT of the head and neck. * There was concern for giant cell arteritis on admission but I think it is more likely due to his glaucoma cc this is chronic. * PT OT on board. Fall precautions. * Neurology consulted. #Chest discomfort: * Has resolved. He did not complain of any chest discomfort today. * Troponins were not elevated. Will monitor for now. * Sublingual nitroglycerin as needed. * There was concern that this may be related to inflammation in the setting of polymyalgia rheumatica relapse. #Hyponatremia: Resolving. #Hyperlipidemia: On statin #Depression: On venlafaxine 300 mg daily. History of glaucoma: Currently on eyedrops. Follows with eye doctor on outpatient basis. DVT prophylaxis: Lovenox Disposition: Will depend on how he does with therapy. Charges/Coding Visit Charges Inpatient E&M: 89423 Subs Hosp L2
--- NOTE | 2024-06-03 15:15 | CT_ITS ---
PROCEDURE: CTA HEAD AND NECK W/ CONTRAST 06/03/2024 REASON FOR EXAM: STROKE LIKE SYMPTOMS TECHNIQUE: CTA imaging of the head and neck from the aortic arch to the skull vertex with out constrast and with intravenous contrast. Head CT without IV contrast also performed. Coronal and Sagittal reconstruction series were provided. 3D post processing with reformations, Maximum intensity projection (MIPs) Volume rendering and Shaded surface rendering was provided. One or more dose reduction techniques were used (e.g., Automated exposure control, adjustment of the mA and/or kV according to patient size, use of iterative reconstruction technique). RADIATION DOSE SUMMARY: DLP: 1544.48 mGycm COMPARISON: 06/01/[address] FINDINGS: CT No intracranial hemorrhage, mass effect, midline shift. Latif-white matter differentiation maintained without CT findings of acute infarct. No cerebral edema or sulcal effacement. Ex vacuo ventricular dilation is proportionate to global cerebral volume loss. Patent basal cisterns. Bilateral ocular lens replacements. Left globe implant redemonstrated. Paranasal sinuses and mastoid air cells appear clear. CTA Aortic Arch: Normal size and branching pattern. No significant atherosclerotic plaque. Brachiocephalic and Subclavians: Unremarkable RIGHT Carotid: Right CCA: Mild calcified and soft plaque of the bulb. Right ICA: Unremarkable. Right ECA: Unremarkable. LEFT Carotid: Left CCA: Mild calcified and soft plaque at the bulb. Left ICA: Unremarkable. Left ECA: Unremarkable. Vertebrals: Codominant. Arise from the subclavians. Both vertebrals form the basilar. RIGHT Vertebral: Unremarkable. LEFT Vertebral: Unremarkable. Anatomy: Dominant left posterior communicating artery. Aneurysm or AVM: No intracranial aneurysms or large vascular malformations are identified. Anterior cerebral arteries: Unremarkable: Middle cerebral arteries: Unremarkable. Basilar artery: Unremarkable. Posterior cerebral arteries: Unremarkable. Other major branches of the posterior circulation: Unremarkable. Major venous structures: Unremarkable. Other findings: Neck: 1.2 x 1.0 x 1.5 cm enhancing mass between the proximal right ECA and ICA. Prominent right cervical lymph nodes measure up to at least 10 mm short axis. Lungs: Clear as visualized. Bones: Cervical spine degenerative change. CT/CTA Head AND Neck W/ Contrast IMPRESSION: No stenosis, dissection, or aneurysm. No acute abnormal intracranial finding. [facility]
[2024-06-03 15:30] VITALS: BP 144/90; PULSE 78; RESP 15; TEMP 36.1; O2SAT 98
[2024-06-03 22:40] VITALS: BP 140/80; PULSE 75; RESP 18; TEMP 36.6; O2SAT 93
[2024-06-03] MEDS: LATANOPROSTENE BUNOD 0.024% 1 DRP LEFT EYE (22:44)
[2024-06-03] MEDS: Atorvastatin Calcium 20 MG Tablet PO (22:51)
[2024-06-04 01:32] VITALS: BP 119/67; PULSE 68; RESP 18; TEMP 36.6; O2SAT 96
[2024-06-04 04:47] LABS: Absolute Neutrophil Count 6.4 X10^3/uL (2.0-7.7); Basophil# 0.02 X10^3/uL; Basophil% 0.2 % (0-1); Eosinophil# 0.02 X10^3/uL; Eosinophils% 0.2 % (0-5); Hematocrit 40.2 % (40-54); Hemoglobin 14.1 g/dL (13.0-16.5); Lymphocyte % 25.9 % (19-41); Mean Corp Hgb Conc 35.1 g/dL (32-36); Mean Corpuscular Hgb 29.9 pg (27.0-32.0); Mean Corpuscular Volume 85.2 fL (80-94); Mean Platelet Vol. 9.5 fl (6.2-12.0); NRBC Flagged by Analyzer 0 % (0-5); Neutrophil # 6.44 X10^3/uL (2.7-7.7); Neutrophil % 64.2 % (47-70); Platelet Count 196 K/mm3 (150-450); RBC Distribution Width SD 43.6 fl (35.1-43.9); Red Blood Count 4.72 M/mm3 (4.6-6.2)
[2024-06-04] MEDS: Gabapentin 100 MG Capsule 200 MG PO ×3 (06:07→22:03)
[2024-06-04] MEDS: 0.9% Saline Lock 10 ML Syringe IV (06:09)
[2024-06-04 07:00] LABS: Anion Gap 10 (5-15); BUN 16 mg/dL (4-19); BUN/Creat Ratio 20.7 RATIO (10-20); Calcium,Total 8.8 mg/dL (7.6-11.0); Carbon Dioxide 22.6 mmol/L (21.0-32.0); Chloride 99 mmol/L (98-108); Creatinine, Serum 0.79 mg/dL (0.70-1.20); EST Glomerular Filtration Rate 91 (>60); Estimated Creatinine Clearance 82.58 ml/min (50-250); Glucose 111 mg/dL (70-99); Potassium 3.9 mmol/L (3.3-5.1); Sodium Level 131 mmol/L (133-145)
[2024-06-04 09:59] VITALS: BP 114/68; PULSE 75; RESP 14; TEMP 36.8; O2SAT 96
[2024-06-04] MEDS: Venlafaxine XR 150 MG Capsule 300 MG PO (10:03)
[2024-06-04] MEDS: Enoxaparin 40 MG/0.4 ML Syringe SC (10:03)
[2024-06-04] MEDS: AcetaZOLAMIDE 250 MG Tablet PO ×2 (10:03→16:50)
[2024-06-04] MEDS: predniSONE 20 MG Tablet 40 MG PO (10:03)
[2024-06-04] MEDS: Ascorbic Acid 500 MG Tablet 1000 MG PO (10:04)
[2024-06-04] MEDS: Dorzolamide HCL/Timolol 10 ml Bottle 1 DRP LEFT EYE ×2 (10:04→16:51)
[2024-06-04] MEDS: Multivitamins,Therapeutic Tablet 1 TABLET PO (10:04)
[2024-06-04] MEDS: Ensure Plus High Protein 120 ML LIQUID PO ×3 (10:05→16:51)
--- NOTE | 2024-06-04 11:45 | CON.PCM.NE_ITS ---
Assessment and Plan: Stroke Assessment/Plan DAVI HANDLEY is a 79 M with a history of who presents for evaluation of Neurological examination shows . Neuroimaging shows . [Quick text reminder: .OSUtnk/.OSUnontnk] HPI Consult Data Date of Consult: 06/06/24 HPI Narrative HPI Narrative: DAVI HANDLEY, is a 79 M who presents [facility] Medical History (Updated 06/02/24 @ 00:[address] Dallas Henderson, ) Hypercholesterolemia Glaucoma Home Medications ?Medication ?Instructions ?Recorded ?Last Taken ?Type acetazolamide 250 mg tablet 250 mg PO BID 06/02/24 Unk nown History alprazolam 0.5 mg tablet 0.5 mg PO TID PRN PRN anxiet y 06/02/24 Unknown History ascorbic acid (vitamin C) 1,000 mg 1 g PO DAILY Unknown History capsule coQ10 (liposomal ubiquinol) PO DAILY 06/02/24 Unknown History dorzolamide 22.3 mg-timolol 6.8 1 drp LEFT EYE BID Unknown History mg/mL eye drops doxycycline hyclate 100 mg tablet 100 mg PO BID Unknown History gabapentin 100 mg capsule 200 mg PO TID 06/02/24 Unkno wn History latanoprostene bunod 0.024 % eye 1 drp LEFT EYE DAILY eye health 06/02/24 Unknown History drops (Vyzulta) meclizine 25 mg tablet 25 mg PO TID PRN 06/02/24 Un known History multivitamin (Daily Multi-Vitamin 1 tab PO DAILY 06/02 Unknown History tablet) oxymetazoline 0.05 % nasal spray 2 spray intranasal Q1 2H PRN PRN 06/02/24 Unknown History (Afrin (oxymetazoline)) congestion rosuvastatin 10 mg tablet 10 mg PO QHS 06/02/24 Unknow n History venlafaxine 150 mg 300 mg PO DAILY 06/02/24 Unk nown History capsule,extended release 24 hr Allergy/AdvReac Type Severity Reaction Status Date / Time brimonidine Allergy Intermediate Itching Verified 06/01/24 17:27 sildenafil (From Viagra) AdvReac Intermediate HEADACHE Verified 06/01/24 17:27 Surgical History (Updated 06/01/24 @ 22:[address] Marc Betancourt, ) Status post glaucoma surgery Hx of inguinal herniorrhaphy Social History Smoking Status: Never smoker Vital Signs Vital Signs Vital Signs: 06/03/24 15:30 06/03/24 22:40 06/03/24 22:40 Temperature 97.0 F L 97.9 F Temperature Source Oral Temporal Pulse Rate 78 75 Pulse Strength Normal (2+) Respiratory Rate 15 18 Respiratory Effort Respiratory Depth Respiratory Pattern Blood Pressure 144/90 H 140/80 H Blood Pressure Mean 108 100 Blood Pressure Source Monitor Monitor Blood Pressure Position Semi-Fowlers Semi-Fowlers Blood Pressure Location Right Arm Left Arm Pulse Ox 98 93 Oxygen Delivery Method Room Air Room Air 06/03/24 22:56 06/04/24 01:30 06/04/24 01:32 Temperature 97.9 F Temperature Source Oral Pulse Rate 68 Pulse Strength Respiratory Rate 18 Respiratory Effort Normal Non-Labored Normal Non-Labored Respiratory Depth Normal Normal Respiratory Pattern Normal Normal Blood Pressure 119/67 Blood Pressure Mean 84 Blood Pressure Source Monitor Blood Pressure Position Semi-Fowlers Blood Pressure Location Left Arm Pulse Ox 96 Oxygen Delivery Method Room Air Room Air Room Air 06/04/24 07:59 06/04/24 07:59 06/04/24 08:28 Temperature Temperature Source Pulse Rate Pulse Strength Normal (2+) Respiratory Rate Respiratory Effort Normal Non-Labored Respiratory Depth Normal Respiratory Pattern Normal Blood Pressure Blood Pressure Mean Blood Pressure Source Blood Pressure Position Blood Pressure Location Pulse Ox Oxygen Delivery Method Room Air Room Air 06/04/24 09:59 Temperature 98.3 F Temperature Source Oral Pulse Rate 75 Pulse Strength Respiratory Rate 14 Respiratory Effort Respiratory Depth Respiratory Pattern Blood Pressure 114/68 Blood Pressure Mean 83 Blood Pressure Source Monitor Blood Pressure Position Sitting Blood Pressure Location Left Arm Pulse Ox 96 Oxygen Delivery Method Room Air Weight Weight: 89.6 kg Body Mass Index (BMI) 30.9 EEG Results Procedure Details EEG Procedure Details: DAVI HANDLEY is a 79 year old M with a past medical history of , who presents for evaluation of Electroencephalogram on DATE at TIME Lab / Micro Data 06/06/24 04:40 06/06/24 04:40 Labs: Laboratory Results - last 24 hr 06/04/24 04:24: WBC 10.0, RBC 4.72, Hgb 14.1, Hct 40.2, MCV 85.2, MCH 29.9, MCHC 35.1, RDW Std Deviation 43.6, RDW Coeff of Tj 14.0, Plt Count 196, MPV 9.5, Immature Gran % (Auto) 0.500, Neut % (Auto) 64.2, Lymph % (Auto) 25.9, [place] % (Auto) 9.0, Eos % (Auto) 0.2, Baso % (Auto) 0.2, Absolute Neuts (auto) 6.4, Absolute Lymphs (auto) 2.60, Nucleated RBC % 0, Sodium 131 L, Potassium 3.9, Chloride 99, Carbon Dioxide 22.6, Anion Gap 10, BUN 16, Creatinine 0.79, Estim Creat Clear Calc 82.58, Est GFR (MDRD) Non-Af 91, BUN/Creatinine Ratio 20.7 H, G lucose 111 H, Calcium 8.8 Imaging Radiology Impression Head/Neck CTA 06/03/24 15:15 IMPRESSION: No stenosis, dissection, or aneurysm. No acute abnormal intracranial finding. Reading [facility] Active Medications Active Medications Active Medications: Current Medications Generic Name Dose Route Start Last Admin Trade Name Freq PRN Reason Stop Dose Admin Acetaminophen 650 mg 06/02/24 01:49 Acetaminophen 325 Mg Tablet PO Q6H PRN PRN Pain 1-10 Or Fever>100.7 Acetazolamide 250 mg 06/02/24 22:00 06/04/24 10:03 Acetazolamide 250 Mg Tablet PO 250 mg BIDCM JENNIFER Administration Alprazolam 0.5 mg 06/02/24 17:25 Alprazolam 0.5 Mg Tablet PO TID PRN PRN anxiety Ascorbic Acid 1,000 mg 06/02/24 10:00 06/04/24 10:04 Ascorbic Acid 500 Mg Tablet PO 1,000 mg DAILY JENNIFER Administration Atorvastatin Calcium 20 mg 06/02/24 22:00 06/03/24 22:51 Atorvastatin Calcium 20 Mg Tablet PO 20 mg QHS JENNIFER Administration Dorzolamide/Timolol 1 drp 06/03/24 08:00 06/04/24 10:04 Dorzolamide Hcl/Timolol 10 Ml Bottle LEFT EYE 1 drp 0800,1700 JENNIFER Administration Enoxaparin Sodium 40 mg 06/02/24 10:00 06/04/24 10:03 Enoxaparin 40 Mg/0.4 Ml Syringe SC 40 mg DAILY JENNIFER Administration Gabapentin 200 mg 06/02/24 06:00 06/04/24 06:07 Gabapentin 100 Mg Capsule PO 200 mg TID JENNIFER Administration Sodium Chloride 100 mls @ 15 mls/hr 06/02/24 02:00 IV .Q6H40M PRN Saline Flush Sodium Chloride 100 mls @ 15 mls/hr 06/02/24 02:00 IV .Q6H40M PRN Additional IVPB Infusion Iopamidol 0 ml 06/04/24 11:45 Contrast Allergy Safety Check IV X1 JENNIFER Meclizine HCl 25 mg 06/02/24 01:49 Meclizine Hcl 25 Mg Tablet PO TID PRN PRN DIZZINESS Melatonin 3 mg 06/02/24 01:49 Melatonin 3 Mg Tablet PO QHS PRN PRN INSOMNIA Multivitamins 1 tablet 06/02/24 08:00 06/04/24 10:04 Multivitamins,Therapeutic Tablet PO 1 tablet DAILYCM JENNIFER Administration Nutritional Formula (Lactose Free) 120 ml 06/02/24 14:00 06/04/24 10:05 Ensure Plus High Protein 120 Ml Liquid PO 120 ml 4X/DAY JENNIFER Administration Ondansetron HCl 4 mg 06/02/24 01:49 Ondansetron 4 Mg/2 Ml Vial IV Q8H PRN PRN NAUSEA/VOMITING Oxymetazoline HCl 2 spray 06/02/24 17:25 Oxymetazoline 0.05% 1 Tell Tell.Btl NASAL Q12H PRN PRN congestion Prednisone 40 mg 06/03/24 08:00 06/04/24 10:03 Prednisone 20 Mg Tablet PO 40 mg BREAKFAST JENNIFER Administration Sodium Chloride 10 - 40 ml 06/02/24 02:00 06/04/24 06:09 0.9% Saline Lock 10 Ml Syringe IV 10 ml UD PRN Administration SALINE FLUSH Tamsulosin HCl 0.4 mg 06/03/24 11:30 06/03/24 17:36 Tamsulosin Hcl 0.4 Mg Capsule PO 0.4 mg DAILY@1730 JENNIFER Administration Venlafaxine HCl 300 mg 06/03/24 10:00 04/18/25 10:03 Venlafaxine Xr 150 Mg Capsule PO 300 mg DAILY JENNIFER Administration
--- NOTE | 2024-06-04 12:14 | NEURO.CONS ---
Assessment and Plan: Neuro Assessment/Plan 79 yo man with history of PMR 10 years ago received prednisone course with improvement and no further relapse, who is presenting with difficultly walking over the past couple weeks following URI. Exam with normal strength and sensation to light touch. He has been using a walker, he is unsteady without the walker, swaying, but narrow base and does well with the walker. Patellar reflexes present. With recent URI, urine retention, and gait disturbance, need to rule out post infectious myelitis/neuritis. Will obtain MRI brain and spine w/wo contrast. Less likely GBS at this time but will consider further workup pending MRI. Recs: MRI brain w/wo MRI fulll spine w/wo Send B1, B12, Thiamine,, Copper, zinc, Vitamin E, TSH We will follow I personally attended this patient and spent a total time of 45 minutes evaluating this patient including clinical assessment, review of chart, medical history imaging, and determining appropriate treatment and workup. HPI Consult Data Date of Consult: 06/04/24 HPI Narrative HPI Narrative: DAVI HANDLEY, is a 79 M, he has history of PMR 10 years ago improved with steroids and never had relapses since then. No reported history of GCA. He is presenting with generalized weakness. Patient reports over the past few weeks Since early May, he developed cold around May 18 and . Since then, things has been getting worse. He has had progressive weaknesses. He developed bladder retention, currently using a Teresa. Currently he feels wobbly when he gets up. Hard time getting around. This has been progressively weaker.? For the past 10 days, he has been having some difficulty with vision as well, harder for him to read on his phone. 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 Denies tingling/numbness, headache Mild L sided headache, nothing really severe. Prior to this he is very active, chopping hickey. On presentation, BMP showed sodium 130, was otherwise unremarkable. ESR 22 CRP <3 CTH showed Other findings: Neck: 1.2 x 1.0 x 1.5 cm enhancing mass between the proximal right ECA and ICA. Prominent right cervical lymph nodes measure up to at least 10 mm short axis. Lungs: Clear as visualized. Bones: Cervical spine degenerative change. Neurological Exam: Exam performed with help of the nurse/YUE present with patient on Tele site NEURO: AAOx3, follows commands, no aphasia/dysarthria. PERRL, EOMI, no gaze preference/nystagmus. Face symmetric, Intact facial sensation. Tongue midline. Head turning intact. Sensation: intact to light touch all over. Motor: SA, EF, EE 5/5 in bilateral UE. Lower extremities 5/5 hip flexion and knee extension/flexion bilaterally. Coordination: FTN intact bilaterally. HTS intact bilaterally. Reflexes challenging to obtain , but bilateral patellar present 2+ PFSH Medical History (Updated 06/02/24 @ 00:[address] Dallas Henderson, DO) Hypercholesterolemia Glaucoma Home Medications ?Medication ?Instructions ?Recorded ?Last Taken ?Type acetazolamide 250 mg tablet 250 mg PO BID 06/02/24 Unknown History alprazolam 0.5 mg tablet 0.5 mg PO TID PRN PRN anxiety 06/02/24 Unknown History ascorbic acid (vitamin C) 1,000 mg 1 g PO DAILY 06/02/24 Unknown History capsule coQ10 (liposomal ubiquinol) PO DAILY 06/02/24 Unknown History dorzolamide 22.3 mg-timolol 6.8 1 drp LEFT EYE BID 06/02/24 Unknown History mg/mL eye drops doxycycline hyclate 100 mg tablet 100 mg PO BID 06/02/24 Unknown History gabapentin 100 mg capsule 200 mg PO TID 06/02/24 Unknown History latanoprostene bunod 0.024 % eye 1 drp LEFT EYE DAILY eye health 06/02/24 Unknown History drops (Vyzulta) meclizine 25 mg tablet 25 mg PO TID PRN 06/02/24 Unknown History multivitamin (Daily Multi-Vitamin 1 tab PO DAILY 06/02/24 Unknown History tablet) oxymetazoline 0.05 % nasal spray 2 spray intranasal Q12H PRN PRN 06/02/24 Unknown History (Afrin (oxymetazoline)) congestion rosuvastatin 10 mg tablet 10 mg PO QHS 06/02/24 Unknown History venlafaxine 150 mg 300 mg PO DAILY 06/02/24 Unknown History capsule,extended release 24 hr Allergy/AdvReac Type Severity Reaction Status Date / Time brimonidine Allergy Intermediate Itching Verified 06/01/24 17:27 sildenafil (From Viagra) AdvReac Intermediate HEADACHE Verified 06/01/24 17:27 Surgical History (Updated 06/01/24 @ 22:[address] Marc Betancourt DO) Status post glaucoma surgery Hx of inguinal herniorrhaphy Social History Smoking Status: Never smoker Vital Signs Vital Signs Vital Signs: 06/03/24 15:30 06/03/24 22:40 06/03/24 22:40 Temperature 97.0 F L 97.9 F Temperature Source Oral Temporal Pulse Rate 78 75 Pulse Strength Normal (2+) Respiratory Rate 15 18 Respiratory Effort Respiratory Depth Respiratory Pattern Blood Pressure 144/90 H 140/80 H Blood Pressure Mean 108 100 Blood Pressure Source Monitor Monitor Blood Pressure Position Semi-Fowlers Semi-Fowlers Blood Pressure Location Right Arm Left Arm Pulse Ox 98 93 Oxygen Delivery Method Room Air Room Air 06/03/24 22:56 06/04/24 01:30 06/04/24 01:32 Temperature 97.9 F Temperature Source Oral Pulse Rate 68 Pulse Strength Respiratory Rate 18 Respiratory Effort Normal Non-Labored Normal Non-Labored Respiratory Depth Normal Normal Respiratory Pattern Normal Normal Blood Pressure 119/67 Blood Pressure Mean 84 Blood Pressure Source Monitor Blood Pressure Position Semi-Fowlers Blood Pressure Location Left Arm Pulse Ox 96 Oxygen Delivery Method Room Air Room Air Room Air 06/04/24 07:59 06/04/24 07:59 06/04/24 08:28 Temperature Temperature Source Pulse Rate Pulse Strength Normal (2+) Respiratory Rate Respiratory Effort Normal Non-Labored Respiratory Depth Normal Respiratory Pattern Normal Blood Pressure Blood Pressure Mean Blood Pressure Source Blood Pressure Position Blood Pressure Location Pulse Ox Oxygen Delivery Method Room Air Room Air 06/04/24 09:59 Temperature 98.3 F Temperature Source Oral Pulse Rate 75 Pulse Strength Respiratory Rate 14 Respiratory Effort Respiratory Depth Respiratory Pattern Blood Pressure 114/68 Blood Pressure Mean 83 Blood Pressure Source Monitor Blood Pressure Position Sitting Blood Pressure Location Left Arm Pulse Ox 96 Oxygen Delivery Method Room Air Weight Weight: 89.6 kg Body Mass Index (BMI) 30.9 EEG Results Procedure Details EEG Procedure Details: DAVI HANDLEY is a 79 year old M with a past medical history of , who presents for evaluation of Electroencephalogram on DATE at TIME Lab / Micro Data 06/04/24 04:24 06/04/24 04:24 Labs: Laboratory Results - last 24 hr 06/04/24 04:24: WBC 10.0, RBC 4.72, Hgb 14.1, Hct 40.2, MCV 85.2, MCH 29.9, MCHC 35.1, RDW Std Deviation 43.6, RDW Coeff of Tj 14.0, Plt Count 196, MPV 9.5, Immature Gran % (Auto) 0.500, Neut % (Auto) 64.2, Lymph % (Auto) 25.9, Sac % (Auto) 9.0, Eos % (Auto) 0.2, Baso % (Auto) 0.2, Absolute Neuts (auto) 6.4, Absolute Lymphs (auto) 2.60, Nucleated RBC % 0, Sodium 131 L, Potassium 3.9, Chloride 99, Carbon Dioxide 22.6, Anion Gap 10, BUN 16, Creatinine 0.79, Estim Creat Clear Calc 82.58, Est GFR (MDRD) Non-Af 91, BUN/Creatinine Ratio 20.7 H, Glucose 111 H, Calcium 8.8 Imaging Radiology Impression Head/Neck CTA 06/03/24 15:15 IMPRESSION: No stenosis, dissection, or aneurysm. No acute abnormal intracranial finding. Reading [facility] Active Medications Active Medications Active Medications: Current Medications Generic Name Dose Route Start Last Admin Trade Name Freq PRN Reason Stop Dose Admin Acetaminophen 650 mg 06/02/24 01:49 Acetaminophen 325 Mg Tablet PO Q6H PRN PRN Pain 1-10 Or Fever>100.7 Acetazolamide 250 mg 06/02/24 22:00 06/04/24 10:03 Acetazolamide 250 Mg Tablet PO 250 mg BIDCM JENNIFER Administration Alprazolam 0.5 mg 06/02/24 17:25 Alprazolam 0.5 Mg Tablet PO TID PRN PRN anxiety Ascorbic Acid 1,000 mg 06/02/24 10:00 06/04/24 10:04 Ascorbic Acid 500 Mg Tablet PO 1,000 mg DAILY JENNIFER Administration Atorvastatin Calcium 20 mg 06/02/24 22:00 06/03/24 22:51 Atorvastatin Calcium 20 Mg Tablet PO 20 mg QHS JENNIFER Administration Dorzolamide/Timolol 1 drp 06/03/24 08:00 06/04/24 10:04 Dorzolamide Hcl/Timolol 10 Ml Bottle LEFT EYE 1 drp 0800,1700 JENNIFER Administration Enoxaparin Sodium 40 mg 06/02/24 10:00 06/04/24 10:03 Enoxaparin 40 Mg/0.4 Ml Syringe SC 40 mg DAILY JENNIFER Administration Gabapentin 200 mg 06/02/24 06:00 06/04/24 06:07 Gabapentin 100 Mg Capsule PO 200 mg TID JENNIFER Administration Sodium Chloride 100 mls @ 15 mls/hr 06/02/24 02:00 IV .Q6H40M PRN Saline Flush Sodium Chloride 100 mls @ 15 mls/hr 06/02/24 02:00 IV .Q6H40M PRN Additional IVPB Infusion Meclizine HCl 25 mg 06/02/24 01:49 Meclizine Hcl 25 Mg Tablet PO TID PRN PRN DIZZINESS Melatonin 3 mg 06/02/24 01:49 Melatonin 3 Mg Tablet PO QHS PRN PRN INSOMNIA Multivitamins 1 tablet 06/02/24 08:00 06/04/24 10:04 Multivitamins,Therapeutic Tablet PO 1 tablet DAILYCM JENNIFER Administration Nutritional Formula (Lactose Free) 120 ml 06/02/24 14:00 06/04/24 10:05 Ensure Plus High Protein 120 Ml Liquid PO 120 ml 4X/DAY JENNIFER Administration Ondansetron HCl 4 mg 06/02/24 01:49 Ondansetron 4 Mg/2 Ml Vial IV Q8H PRN PRN NAUSEA/VOMITING Oxymetazoline HCl 2 spray 06/02/24 17:25 Oxymetazoline 0.05% 1 Lancaster Lancaster.Btl NASAL Q12H PRN PRN congestion Prednisone 40 mg 06/03/24 08:00 06/04/24 10:03 Prednisone 20 Mg Tablet PO 40 mg BREAKFAST JENNIFER Administration Sodium Chloride 10 - 40 ml 06/02/24 02:00 06/04/24 06:09 0.9% Saline Lock 10 Ml Syringe IV 10 ml UD PRN Administration SALINE FLUSH Tamsulosin HCl 0.4 mg 06/03/24 11:30 06/03/24 17:36 Tamsulosin Hcl 0.4 Mg Capsule PO 0.4 mg DAILY@1730 JENNIFER Administration Venlafaxine HCl 300 mg 06/03/24 10:00 06/04/24 10:03 Venlafaxine Xr 150 Mg Capsule PO 300 mg DAILY JENNIFER Administration
--- NOTE | 2024-06-04 12:21 | MRI_ITS ---
PROCEDURE: SPINE LUMBAR W/WO CONTRAST 06/04/2024 REASON FOR EXAM: MYELITIS TECHNIQUE: Multiplanar and multisequence images were obtained without and with intravenous gadolinium-based contrast administration. CONTRAST: Clariscan VOLUME: 18mL Gauge IV FINDINGS: Vertebrae: Lumbar vertebral body heights are preserved. Alignment: Normal. No spondylolisthesis. Conus Medullaris: T12/L1 L1-2: Mild bilateral facet hypertrophy and ligamentum flavum hypertrophy. Mild bilobed disc protrusion produces mild spinal stenosis and mild bilateral neural foraminal stenosis. L2-3: Mild bilateral facet hypertrophy and moderate ligamentum flavum hypertrophy. Moderate bilobed disc protrusion produces moderate spinal stenosis and moderate bilateral neural foraminal stenosis with abutment of the exiting L2 nerve roots bilaterally. L3-4: Moderate bilateral facet hypertrophy and ligamentum flavum hypertrophy. Moderate broad disc protrusion produces severe spinal stenosis and moderate bilateral neural foraminal stenosis with abutment of the exiting L3 nerve roots bilaterally. L4-5: Mild bilateral facet hypertrophy and moderate ligamentum flavum hypertrophy. Moderate broad disc protrusion produces severe spinal stenosis with moderate bilateral neural foraminal stenosis with abutment of the exiting L4 nerve roots bilaterally. L5-S1: Unremarkable Sacrum: Visualized upper sacrum and SI joints are unremarkable. Postcontrast images: No unusual post-operative contrast enhancement. MRI/Spine Lumbar W/WO Contrast IMPRESSION: Degenerative disc disease as described above. Reading Location: [id number]
--- NOTE | 2024-06-04 12:21 | MRI_ITS ---
PROCEDURE: SPINE THORACIC W/WO CONTRAST 06/04/2024 REASON FOR EXAM: INFECTIOUS MYELITIS TECHNIQUE: Thoracic spine MRI without and with intravenous gadolinium-based contrast. Multiplanar and multisequence images were obtained. CONTRAST: Clariscan VOLUME: 18mL Gauge IV FINDINGS: Vertebrae: Thoracic vertebral body heights are preserved. Bone marrow signal is unremarkable. Alignment: Normal. No spondylolisthesis. Spinal Cord: Dilatation of the central canal from T7-T9 consistent with a syrinx. No contrast enhancing intramedullary mass. Disc spaces: Mild bilobed disc protrusion at T9/T10 produces mild spinal stenosis but no cord compression. 2 mm of anterolisthesis of T11 on T12 with a mild bilobed disc protrusion produces mild spinal stenosis and mild bilateral neural foraminal stenosis but no cord compression. Paraspinal Tissues: Unremarkable. Postcontrast images: No contrast-enhancing mass. MRI/Spine Thoracic W/WO Contrast IMPRESSION: 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 Reading Location: [id number]
--- NOTE | 2024-06-04 12:21 | MRI_ITS ---
PROCEDURE: SPINE CERVICAL W/WO CONTRAST 06/04/2024 REASON FOR EXAM: STROKE LIKE SYMPTOMS TECHNIQUE: Cervical spine MRI without and with Multiplanar and multisequence images were obtained with intravenous gadolinium- based contrast administration. CONTRAST: Kira scan VOLUME: 18 mL Gauge IV FINDINGS: Vertebrae: Cervical vertebral body heights are preserved. Bone marrow signal is unremarkable. Alignment: Normal. No spondylolisthesis Spinal Cord: Cervical spinal cord is of normal size and signal intensities. No cervical spinal cord lesions are identified. C2-3: Unremarkable C3-4: Unremarkable C4-5: Mild broad disc osteophyte complex and right uncovertebral hypertrophy produces mild spinal stenosis and mild right neural foraminal stenosis. C5-6: Moderate broad disc osteophyte complex and bilateral uncovertebral hypertrophy produces moderate spinal stenosis with abutment of the central spinal cord and mild bilateral neural foraminal stenosis. C6-7: 2 mm retrolisthesis of C6 on C7 with a mild broad disc osteophyte complex produces moderate spinal stenosis with abutment of the ventral spinal cord and moderate bilateral neural foraminal stenosis. C7-T1: Unremarkable Postcontrast images: No suspicious contrast enhancement. MRI/Spine Cervical W/WO Contrast IMPRESSION: Degenerative disc disease as described above. Reading Location: [id number]
--- NOTE | 2024-06-04 13:35 | PN_ITS ---
Subjective Subjective Patient seen and examined. He still complains of blurred vision. Review of systems is otherwise negative. Objective Data Objective Data Vital Signs: Vital Signs Temp Pulse Resp BP Pulse Ox O2 Del Method 98.3 F 75 14 114/68 96 Room Air 06/04/24 09:59 06/04/24 09:59 06/04/24 09:59 06/04/24 09:59 06/04/24 09:59 06/04/24 09:59 Oxygen Delivery Method Room Air Weight: 197 lb 8.547 oz Body Mass Index (BMI) 30.9 Intake & Output: Intake and Output for Last 24 Hours 06/02/24 06/03/24 06/04/24 23:59 23:59 23:59 Intake Total 1960 / 1960 960 / 960 480 / 480 Output Total 2875 / 2875 900 / 900 3000 / 3000 Balance -915 / -915 60 / 60 -2520 / -2520 Lab / Micro Data 06/04/24 04:24 06/04/24 04:24 Labs: Laboratory Results - last 24 hr 06/04/24 04:24: WBC 10.0, RBC 4.72, Hgb 14.1, Hct 40.2, MCV 85.2, MCH 29.9, MCHC 35.1, RDW Std Deviation 43.6, RDW Coeff of Tj 14.0, Plt Count 196, MPV 9.5, Immature Gran % (Auto) 0.500, Neut % (Auto) 64.2, Lymph % (Auto) 25.9, [place] % (Auto) 9.0, Eos % (Auto) 0.2, Baso % (Auto) 0.2, Absolute Neuts (auto) 6.4, Absolute Lymphs (auto) 2.60, Nucleated RBC % 0, Sodium 131 L, Potassium 3.9, Chloride 99, Carbon Dioxide 22.6, Anion Gap 10, BUN 16, Creatinine 0.79, Estim Creat Clear Calc 82.58, Est GFR (MDRD) Non-Af 91, BUN/Creatinine Ratio 20.7 H, G lucose 111 H, Calcium 8.8 Micro: Microbiology 06/01/24 21:00 Mucosa - Nose SARS-CoV-2, Influenza & RSV (PCR) - Final Radiography Diagnostic Testing: Radiology Impression Head/Neck CTA 06/03/24 15:15 IMPRESSION: No stenosis, dissection, or aneurysm. No acute abnormal intracranial finding. Reading Location: [facility], [facility] Physical Exam Const alert, oriented x3, no apparent distress and average body habitus Constitutional Narrative: flat affect General Appearance: cooperative and comfortable HEENT normocephalic, head/scalp atraumatic, hearing grossly normal bilaterally, nasal mucous membranes and turbinates normal, moist oral mucous membranes and oropharynx normal Eyes PERRL, EOMs intact bilaterally and conjunctivae normal Neck full ROM, no lymphadenopathy and supple Lymph Lymphatic: no lymphadenopathy noted and no lymphedema noted Chest inspection of chest normal Resp normal respiratory effort, normal air movement, no use of accessory muscles and clear to auscultation bilaterally Cardio regular rate, regular rhythm, S1 normal heart sound, S2 normal heart sound, no murmurs and peripheral pulses 2+ throughout GI normal to inspection, nondistended, normoactive bowel sounds, soft to palpation, non-tender and non-distended Back/Spine normal ROM Extremity normal to inspection, normal capillary refill, no clubbing, cyanosis or edema, no calf tenderness and no pedal edema General Extremity: no tenderness to palpation of joints or extremities Skin no rashes or lesions noted General Skin Exam: no breakdown Neuro CN's II-XII intact bilaterally, moves all extremities, no focal motor deficits and no sensory deficits noted Speech: speech normal Motor Exam: strength 5/5 throughout and general weakness Psych mental status grossly normal, thought process normal, cooperative and affect normal Psych Narrative: Flat affect. Appearance: appropriate Mood & Affect: flat affect Assessment & Plan Assessment/Plan (1) General weakness: PLAN: Plan #Debility and weakness with failure to thrive * He does have a history of polymyalgia rheumatica and is concerned that he may have had a relapse. * Currently on p.o. prednisone. Patient states he feels much better after the prednisone was started. ESR and CRP ordered. * He has had some blurred vision but saidthat this was chronic and is due to glaucoma. * However, patient said the blurred vision was getting worse and unlike his usual blurred vision from glaucoma * MRI of the brain with and without contrast ordered. * There was concern for giant cell arteritis on admission but I think it is more likely due to his glaucoma cc this is chronic. * PT OT on board. Fall precautions. * Neurology consulted; they reviewed patient today and want to rule out infectious myelitis. MRI of the cervical, thoracic and lumbar spine with and without contrast ordered. * CTA of the head and neck showed no hemodynamically significant stenosis, and showed a 1.2 x 1 x 1.5cm enhancing mass between the proximal right ECA and ICA. #Right neck mass * CTA head and neck as above. * getting MRI brain and cervical spine which will help better delineate the neck mass. #Chest discomfort: * Has resolved. * Troponins were not elevated. Will monitor for now. * Sublingual nitroglycerin as needed. * There was concern that this may be related to inflammation in the setting of polymyalgia rheumatica relapse. #Hyponatremia: Resolving. Sodium is 131 today. #Hyperlipidemia: On statin #Depression: On venlafaxine 300 mg daily. History of glaucoma: Currently on eyedrops. Follows with eye doctor on outpatient basis. DVT prophylaxis: Lovenox Disposition: Will depend on how he does with therapy. Charges/Coding Visit Charges Inpatient E&M: 43035 Subs Hosp L2
--- NOTE | 2024-06-04 14:06 | MRI_ITS ---
PROCEDURE: BRAIN W/WO CONTRAST 06/04/2024 REASON FOR EXAM: STROKE LIKE SYMPTOMS TECHNIQUE: Routine brain MRI without and with intravenous contrast. Multiplanar and multisequence images were obtained. CONTRAST: 18 mL of Clariscan FINDINGS: Brain: Moderate cerebral atrophy and chronic periventricular white matter disease. Diffusion: No area of restricted diffusion to suggest acute or subacute infarction. Ventricles: Consistent with the overall degree of cerebral atrophy. Major Intracranial Vessels: Normal flow voids Sinuses: Clear. Mastoids: Clear. MRI/Brain W/WO Contrast IMPRESSION: CEREBRAL ATROPHY WITH CHRONIC SMALL VESSEL ISCHEMIC DISEASE. OTHERWISE UNREMAR KABLE BRAIN MRI. Reading Location: [id number]
[2024-06-04 15:47] VITALS: BP 135/77; PULSE 82; RESP 14; TEMP 37; O2SAT 94
[2024-06-04] MEDS: ALPRAZolam 0.5 MG Tablet PO (16:50)
[2024-06-04 22:00] VITALS: BP 126/74; PULSE 78; RESP 18; TEMP 36.7; O2SAT 98
[2024-06-04] MEDS: Tamsulosin HCl 0.4 MG Capsule PO (22:03)
[2024-06-04] MEDS: Atorvastatin Calcium 20 MG Tablet PO (22:08)
[2024-06-04] MEDS: LATANOPROSTENE BUNOD 0.024% 1 DRP LEFT EYE (22:11)
[2024-06-05] VITALS (8 sets, daily range): BP systolic 103–121; BP diastolic 66–79; PULSE 66–94; RESP 16; TEMP 36.2–36.7; O2SAT 94–98; BMI 30.9
[2024-06-05 05:57] LABS: Absolute Lymphocyte Count 2.57 X10^3/uL (0.83-4.51); Absolute Neutrophil Count 8.6 X10^3/uL (2.0-7.7); Basophil# 0.04 X10^3/uL; Basophil% 0.3 % (0-1); Eosinophil# 0.01 X10^3/uL; Eosinophils% 0.1 % (0-5); Hematocrit 42.8 % (40-54); Hemoglobin 14.3 g/dL (13.0-16.5); Lymphocyte # 2.57 X10^3/ul (0.83-4.51); Lymphocyte % 20.9 % (19-41); Mean Corp Hgb Conc 33.4 g/dL (32-36); Mean Corpuscular Hgb 29.5 pg (27.0-32.0); Mean Corpuscular Volume 88.4 fL (80-94); Mean Platelet Vol. 10.6 fl (6.2-12.0); Monocyte# 1.02 X10^3/uL; Monocyte% 8.3 % (0-10); NRBC Flagged by Analyzer 0 % (0-5); Neutrophil # 8.59 X10^3/uL (2.7-7.7); Neutrophil % 69.8 % (47-70); Platelet Count 233 K/mm3 (150-450); RBC Distribution Width CV 14.6 % (11.6-14.6); RBC Distribution Width SD 47.2 fl (35.1-43.9); Red Blood Count 4.84 M/mm3 (4.6-6.2); White Blood Count 12.3 K/mm3 (4.4-11.0)
[2024-06-05 06:32] LABS: Anion Gap 9 (5-15); BUN 21 mg/dL (4-19); BUN/Creat Ratio 21.4 RATIO (10-20); Calcium,Total 9.1 mg/dL (7.6-11.0); Carbon Dioxide 22.3 mmol/L (21.0-32.0); Chloride 103 mmol/L (98-108); EST Glomerular Filtration Rate 78 (>60); Estimated Creatinine Clearance 65.99 ml/min (50-250); Glucose 104 mg/dL (70-99); Sodium Level 134 mmol/L (133-145)
[2024-06-05] MEDS: Gabapentin 100 MG Capsule 200 MG PO ×3 (06:50→20:19)
[2024-06-05] MEDS: Magnesium Hydroxide 30 ML UDC PO (07:43)
[2024-06-05] MEDS: Dorzolamide HCL/Timolol 10 ml Bottle 1 DRP LEFT EYE ×2 (07:46→17:23)
[2024-06-05] MEDS: AcetaZOLAMIDE 250 MG Tablet PO ×2 (07:47→17:23)
[2024-06-05] MEDS: Venlafaxine XR 150 MG Capsule 300 MG PO (07:50)
[2024-06-05] MEDS: predniSONE 20 MG Tablet 40 MG PO (07:50)
[2024-06-05] MEDS: Ascorbic Acid 500 MG Tablet 1000 MG PO (07:50)
[2024-06-05] MEDS: Multivitamins,Therapeutic Tablet 1 TABLET PO (07:50)
[2024-06-05] MEDS: Enoxaparin 40 MG/0.4 ML Syringe SC (07:51)
[2024-06-05] MEDS: Ensure Plus High Protein 120 ML LIQUID PO ×3 (07:52→20:19)
--- NOTE | 2024-06-05 14:19 | PCM.PROGNOTE ---
Subjective Subjective Patient seen and examined. He had no active complaints. He still complaining of the impairment in his vision as well as his gait imbalance. Review of systems otherwise negative. He did have MRI of the brain yesterday which was negative for any evidence of PE. He had MRI of the brain which showed no evidence of stroke. MRI of the thoracic spine was also negative for any acute pathology. MRI of the lumbar and cervical spine have been done but read is pending. He has remained hemodynamically stable. Objective Data Objective Data Vital Signs: Vital Signs Temp Pulse Resp BP Pulse Ox O2 Del Method 97.7 F L 67 16 103/66 94 Room Air 06/05/24 12:13 06/05/24 12:19 06/05/24 12:13 06/05/24 12:13 06/05/24 12:13 06/05/24 14:08 Oxygen Delivery Method Room Air Weight: 197 lb 1.492 oz Body Mass Index (BMI) 30.9 Intake & Output: Intake and Output for Last 24 Hours 06/03/24 06/04/24 06/05/24 23:59 23:59 23:59 Intake Total 960 / 960 980 / 980 350 / 350 Output Total 900 / 900 3675 / 3675 Balance 60 / 60 -2695 / -2695 350 / 350 Lab / Micro Data 06/05/24 04:50 06/05/24 04:50 Labs: Laboratory Results - last 24 hr 06/05/24 04:50: WBC 12.3 H, RBC 4.84, Hgb 14.3, Hct 42.8, MCV 88.4, MCH 29.5, MCHC 33.4, RDW Std Deviation 47.2 H, RDW Coeff of Tj 14.6, Plt Count 233, MPV 10.6, Immature Gran % (Auto) 0.600, Neut % (Auto) 69.8, Lymph % (Auto) 20.9, [place] % (Auto) 8.3, Eos % (Auto) 0.1, Baso % (Auto) 0.3, Absolute Neuts (auto) 8.6 H, Absolute Lymphs (auto) 2.57, Nucleated RBC % 0, Sodium 134, Potassium 4.0, Chloride 103, Carbon Dioxide 22.3, Anion Gap 9, BUN 21 H, Creatinine 1.00, Estim Creat Clear Calc 65.99, Est GFR (MDRD) Non-Af 78, BUN/Creatinine Ratio 21.4 H, Glucose 104 H, Calcium 9.1 Micro: Microbiology 06/01/24 21:00 Mucosa - Nose SARS-CoV-2, Influenza & RSV (PCR) - Final Radiography Diagnostic Testing: Radiology Impression Thoracic Spine MRI 06/04/24 12:21 IMPRESSION: 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 Reading Location: [facility] Brain MRI 06/04/24 14:06 IMPRESSION: CEREBRAL ATROPHY WITH CHRONIC SMALL VESSEL ISCHEMIC DISEASE. OTHERWISE UNREMARKABLE BRAIN MRI. Reading Location: [facility] Physical Exam Const alert, oriented x3, no apparent distress and average body habitus Constitutional Narrative: flat affect General Appearance: cooperative and comfortable HEENT normocephalic, head/scalp atraumatic, hearing grossly normal bilaterally, nasal mucous membranes and turbinates normal, moist oral mucous membranes and oropharynx normal Eyes PERRL, EOMs intact bilaterally and conjunctivae normal Neck full ROM, no lymphadenopathy and supple Lymph Lymphatic: no lymphadenopathy noted and no lymphedema noted Chest inspection of chest normal Resp normal respiratory effort, normal air movement, no use of accessory muscles and clear to auscultation bilaterally Cardio regular rate, regular rhythm, S1 normal heart sound, S2 normal heart sound, no murmurs and peripheral pulses 2+ throughout GI normal to inspection, nondistended, normoactive bowel sounds and soft to palpation Back/Spine normal ROM Extremity normal to inspection, normal capillary refill, no clubbing, cyanosis or edema, no calf tenderness and no pedal edema General Extremity: no tenderness to palpation of joints or extremities Skin no rashes or lesions noted General Skin Exam: no breakdown Neuro CN's II-XII intact bilaterally, moves all extremities, no focal motor deficits and no sensory deficits noted Speech: speech normal Motor Exam: strength 5/5 throughout and general weakness Psych mental status grossly normal, thought process normal, cooperative and affect normal Psych Narrative: Flat affect. Mood & Affect: flat affect Assessment & Plan Assessment/Plan (1) General weakness: PLAN: Plan #Debility and weakness with failure to thrive He does have a history of polymyalgia rheumatica and is concerned that he may have had a relapse. Currently on p.o. prednisone. Patient states he feels much better after the prednisone was started. ESR and CRP ordered. He has had some blurred vision but saidthat this was chronic and is due to glaucoma. However, patient said the blurred vision was getting worse and unlike his usual blurred vision from glaucoma MRI of the brain with and without contrast ordered. There was concern for giant cell arteritis on admission but I think it is more likely due to his glaucoma cc this is chronic. PT OT on board. Fall precautions. Neurology on board CTA of the head and neck showed no hemodynamically significant stenosis, and showed a 1.2 x 1 x 1.5cm enhancing mass between the proximal right ECA and ICA. MRI of the brain with and without contrast showed cerebral atrophy with chronic small vessel ischemic disease but no evidence of stroke. Thoracic spine MRI shows small syrinx from T7-T9 but no acute pathology. MRI of the lumbar and cervical spine are still pending. #Right neck mass CTA head and neck as above. MRI brain and cervical spine which will help better delineate the neck mass have been done and read is pending #Chest discomfort: Has resolved. Troponins were not elevated. Will monitor for now. Sublingual nitroglycerin as needed. There was concern that this may be related to inflammation in the setting of polymyalgia rheumatica relapse. #Hyponatremia:resolving. sodium is 134 today #Hyperlipidemia: On statin #Depression: On venlafaxine 300 mg daily. History of glaucoma: Currently on eyedrops. Follows with eye doctor on outpatient basis. DVT prophylaxis: Lovenox Disposition: Will depend on how he does with therapy. Charges/Coding Visit Charges Inpatient E&M: 94051 Subs Hosp L2
[2024-06-05] MEDS: Tamsulosin HCl 0.4 MG Capsule PO (17:23)
[2024-06-05] MEDS: Atorvastatin Calcium 20 MG Tablet PO (20:18)
--- NOTE | 2024-06-05 20:20 | NURSING ---
Pt requesting vitals to not be taken again until its time to get morning Neurontin.
[2024-06-05] MEDS: LATANOPROSTENE BUNOD 0.024% 1 DRP LEFT EYE (20:23)
[2024-06-06 03:06] VITALS: BMI 31.0
[2024-06-06 05:28] LABS: Absolute Lymphocyte Count 1.89 X10^3/uL (0.83-4.51); Basophil# 0.04 X10^3/uL; Basophil% 0.3 % (0-1); Hematocrit 42.6 % (40-54); Hemoglobin 14.3 g/dL (13.0-16.5); Lymphocyte # 1.89 X10^3/ul (0.83-4.51); Lymphocyte % 14.9 % (19-41); Mean Corp Hgb Conc 33.6 g/dL (32-36); Mean Corpuscular Hgb 29.5 pg (27.0-32.0); Mean Corpuscular Volume 87.8 fL (80-94); Mean Platelet Vol. 10.2 fl (6.2-12.0); Monocyte# 0.71 X10^3/uL; Monocyte% 5.6 % (0-10); NRBC Flagged by Analyzer 0 % (0-5); Neutrophil # 9.95 X10^3/uL (2.7-7.7); Neutrophil % 78.3 % (47-70); Platelet Count 226 K/mm3 (150-450); RBC Distribution Width CV 14.9 % (11.6-14.6); RBC Distribution Width SD 47.4 fl (35.1-43.9); Red Blood Count 4.85 M/mm3 (4.6-6.2); White Blood Count 12.7 K/mm3 (4.4-11.0)
[2024-06-06] MEDS: Gabapentin 100 MG Capsule 200 MG PO (05:50)
[2024-06-06 05:51] VITALS: BP 112/68; PULSE 75; RESP 16; TEMP 36.8; O2SAT 100
[2024-06-06 07:12] LABS: Anion Gap 10 (5-15); BUN 25 mg/dL (4-19); BUN/Creat Ratio 26.7 RATIO (10-20); Calcium,Total 8.9 mg/dL (7.6-11.0); Carbon Dioxide 19.5 mmol/L (21.0-32.0); Chloride 105 mmol/L (98-108); Creatinine, Serum 0.93 mg/dL (0.70-1.20); EST Glomerular Filtration Rate 84 (>60); Estimated Creatinine Clearance 71.11 ml/min (50-250); Glucose 123 mg/dL (70-99); Potassium 4.4 mmol/L (3.3-5.1); Sodium Level 134 mmol/L (133-145)
[2024-06-06] MEDS: Dorzolamide HCL/Timolol 10 ml Bottle 1 DRP LEFT EYE (09:19)
[2024-06-06] MEDS: AcetaZOLAMIDE 250 MG Tablet PO (09:20)
[2024-06-06] MEDS: Multivitamins,Therapeutic Tablet 1 TABLET PO (09:20)
[2024-06-06] MEDS: predniSONE 20 MG Tablet 40 MG PO (09:20)
[2024-06-06] MEDS: Ascorbic Acid 500 MG Tablet 1000 MG PO (09:21)
[2024-06-06] MEDS: Venlafaxine XR 150 MG Capsule 300 MG PO (09:21)
[2024-06-06] MEDS: Enoxaparin 40 MG/0.4 ML Syringe SC (09:21)
[2024-06-06] MEDS: Ensure Plus High Protein 120 ML LIQUID PO (09:27)
--- NOTE | 2024-06-06 11:09 | NEURO.PNOTE ---
Assessment and Plan: Neuro Assessment/Plan 79 yo man with history of PMR 10 years ago received prednisone course with improvement and no further relapse, who is presenting with unsteady gait over the past couple weeks. He had an upper respiratory infections around the time all this started, and he was feeling generally weak back then. Exam with normal strength and sensation to light touch. No Dysmetria. Reflexes present. He is using a walker to ambulate, he is unsteady without the walker, but does very well with the walker and can navigate around unassisted. This morning, he is complaining of some tremors. On exam, he is sitting in the recliner with his legs stretched out while shaking his feet left and right, and he points this is part of the tremor he is referring to. Throughout his stay at the hospital, he has complained of multiple waxing and waning symptoms, and was anxious about it. He has been researching potential treatments and requested primary team to start him on an 8 months course of prednisone. He has had long standing low back issues. Given history, entertained myelitis/neuritis, however his MRI brain/spine did not show evidence of that. MRI T spine showed small T7-T9 syrinx thats likely chronic and woulnd't account for his presentation. Patient reports he is doing better today I discussed with primary provider Dr. Fair who had a long conversation with patient and family. Baseline is questionable. He has had long standing low back issues. He also has had long standing prostate issues. Plan is to discharge patient home today. He did not want to go to rehab. Recommend following up in Neurology clinic in 2 weeks. Send B1, B12, Thiamine,, Copper, zinc, Vitamin E, TSH I personally attended this patient and spent a total time of 35 minutes evaluating this patient including clinical assessment, review of chart, medical history imaging, and determining appropriate treatment and workup. Subject: Neurology Subjective He reports feeling better today. He is complaining of tremors now. On exam, he is sitting in the recliner with his legs stretched out while shaking his feet left and right, and he points this is part of the tremor he is referring to. EEG Results Procedure Details EEG Procedure Details: DAVI HANDLEY is a 79 year old M with a past medical history of , who presents for evaluation of Electroencephalogram on DATE at TIME Objective Data Objective Data Vital Signs: Vital Signs Temp Pulse Resp BP Pulse Ox O2 Del Method 98.3 F 75 16 112/68 100 Room Air 06/06/24 05:51 06/06/24 05:51 06/06/24 05:51 06/06/24 05:51 06/06/24 05:51 06/06/24 09:30 Oxygen Delivery Method Room Air Weight: 89.8 kg Body Mass Index (BMI) 31.0 Intake & Output: Intake and Output for Last 24 Hours 06/04/24 06/05/24 06/06/24 23:59 23:59 23:59 Intake Total 980 / 980 700 / 700 Output Total 3675 / 3675 1400 / 1400 425 / 425 Balance -2695 / -2695 -700 / -700 -425 / -425 Lab / Micro Data 06/06/24 04:40 06/06/24 04:40 Labs: Laboratory Results - last 24 hr 06/06/24 04:40: WBC 12.7 H, RBC 4.85, Hgb 14.3, Hct 42.6, MCV 87.8, MCH 29.5, MCHC 33.6, RDW Std Deviation 47.4 H, RDW Coeff of Tj 14.9 H, Plt Count 226, MPV 10.2, Immature Gran % (Auto) 0.900, Neut % (Auto) 78.3 H, Lymph % (Auto) 14.9 L, [place] % (Auto) 5.6, Eos % (Auto) 0.0, Baso % (Auto) 0.3, Absolute Neuts (auto) 10.0 H, Absolute Lymphs (auto) 1.89, Nucleated RBC % 0, Sodium 134, Potassium 4.4, Chloride 105, Carbon Dioxide 19.5 L, Anion Gap 10, BUN 25 H, Creatinine 0.93, Estim Creat Clear Calc 71.11, Est GFR (MDRD) Non-Af 84, BUN/Creatinine Ratio 26.7 H, Glucose 123 H, Calcium 8.9 Micro: Microbiology 06/01/24 21:00 Mucosa - Nose SARS-CoV-2, Influenza & RSV (PCR) - Final Radiography Diagnostic Testing: Radiology Impression Cervical Spine MRI 06/04/24 12:21 IMPRESSION: Degenerative disc disease as described above. Reading Location: [facility] Lumbar Spine MRI 06/04/24 12:21 IMPRESSION: Degenerative disc disease as described above. Reading Location: [id number] Physical Exam Narrative Refer to assessment and plan
--- NOTE | 2024-06-06 12:04 | DS.PCM_ITS ---
Providers Date of Admission: 06/02/24 Date of Discharge: 06/06/24 Primary Care Physician: Dr. Mando Sher MD Consultations 06/03/24 14:08 Neurology [Consult: Tele-Neurology] Routine Consulting Provider: [facility] Reason for Consult: stroke like symptoms EMERGENT Consult: No MD Notified: Yes Date Notified: 06/03/24 Time Notified: 14:08 Method of Notification: [facility] Nursing Unit Staff Notify [facility] of Tele-Neurology Consult: Yes Reason For Visit: WORSENING WEAKNESS W/ CHEST DISCOMFORT Diagnosis Discharge Diagnosis (1) General weakness: Status: Acute Code(s): R53.1 - Weakness Plan #Debility and weakness with failure to thrive * He does have a history of polymyalgia rheumatica and is concerned that he may have had a relapse. * Currently on p.o. prednisone. Patient states he feels much better after the prednisone was started. ESR and CRP ordered. * He has had some blurred vision but saidthat this was chronic and is due to glaucoma. * However, patient said the blurred vision was getting worse and unlike his usual blurred vision from glaucoma * MRI of the brain with and without contrast ordered. * There was concern for giant cell arteritis on admission but I think it is more likely due to his glaucoma cc this is chronic. * PT OT on board. Fall precautions. * Neurology on board * CTA of the head and neck showed no hemodynamically significant stenosis, and showed a 1.2 x 1 x 1.5cm enhancing mass between the proximal right ECA and ICA. * MRI of the brain with and without contrast showed cerebral atrophy with chronic small vessel ischemic disease but no evidence of stroke. Thoracic spine MRI shows small syrinx from T7-T9 but no acute pathology. * MRI of the lumbar and cervical spine are still pending. #Right neck mass * CTA head and neck as above. * MRI brain and cervical spine which will help better delineate the neck mass have been done and read is pending #Chest discomfort: * Has resolved. * Troponins were not elevated. Will monitor for now. * Sublingual nitroglycerin as needed. * There was concern that this may be related to inflammation in the setting of polymyalgia rheumatica relapse. #Hyponatremia:resolving. sodium is 134 today #Hyperlipidemia: On statin #Depression: On venlafaxine 300 mg daily. History of glaucoma: Currently on eyedrops. Follows with eye doctor on outpatient basis. DVT prophylaxis: Mckaylanox Disposition: Will depend on how he does with therapy. Medications at Discharge Home Medications acetazolamide 250 mg tablet 250 mg PO BID 06/02/24 alprazolam 0.5 mg tablet 0.5 mg PO TID PRN PRN anxiety 06/02/24 ascorbic acid (vitamin C) 1,000 mg capsule 1 g PO DAILY vitamin 06/02/24 coQ10 (liposomal ubiquinol) PO DAILY 06/02/24 dorzolamide 22.3 mg-timolol 6.8 mg/mL eye drops 1 drp LEFT EYE BID eye health 06/02/24 doxycycline hyclate 100 mg tablet 100 mg PO BID 06/02/24 gabapentin 100 mg capsule 200 mg PO TID nerve pain 06/02/24 latanoprostene bunod 0.024 % eye drops (Vyzulta) 1 drp LEFT EYE DAILY eye health 06/02/24 meclizine 25 mg tablet 25 mg PO TID PRN dizziness 06/02/24 multivitamin (Daily Multi-Vitamin tablet) 1 tab PO DAILY vitamin 06/02/24 oxymetazoline 0.05 % nasal spray (Afrin (oxymetazoline)) 2 spray intranasal Q12H PRN PRN congestion 06/02/24 rosuvastatin 10 mg tablet 10 mg PO QHS cholesterol 06/02/24 venlafaxine 150 mg capsule,extended release 24 hr 300 mg PO DAILY mental health 06/02/24 famotidine 20 mg tablet 20 mg PO DAILY #30 tabs 06/06/24 prednisone 10 mg tablets in a dose pack See Taper PO UD #48 tabs 06/06/24 tamsulosin 0.4 mg capsule 0.4 mg PO DAILY@1730 #30 caps 06/06/24 Hospital Course Operations None Procedures None Summary of Care Provided Minutes Spent on Discharge: 47 Hospital Course: Patient is a 79-year-old male with a past medical history as outlined was admitted through the ED on 06/02/2024 with complaint of worsening weakness with ambulation. Patient was usually active at baseline and was able to navigate the steps without any issue. He had had a recent upper respiratory illness in early May and since then he had progressively become weaker with assistance significant instability with walking and generalized weakness all over. He also complained of a headache which was mainly frontal. He did have a history of glaucoma and had had previous procedures on his eyes and did have underlying blurred vision. He also had a history of polymyalgia rheumatica diagnosed about 10 years ago. He was sent in by his pipeman to rule out a stroke in light of the worsening weakness and gait instability as well as the blurred vision. CT of the brain showed no acute intracranial pathology. Due to concerns about a possible flareup of his polymyalgia he was started on p.o. prednisone. His symptoms did subsequently improved. Neurology was consulted. CTA of the head and neck showed no hemodynamically significant stenosis, and showed a 1.2 x 1 x 1.5cm enhancing mass between the proximal right ECA and ICA. He had MRI of the cervical, lumbar and thoracic spine done. Cervical spine MRI showed evidence of moderate spinal stenosis and degenerative disc disease. Lumbar spine MRI also showed evidence of moderate to severe degenerative disc disease. Thoracic spine MRI showed no acute pathology. MRI of the brain also showed no evidence of stroke. The cervical spine MRI did not comment about the enhancing mass seen on the CT of the head and neck. Neurology recommended that patient should have a CT soft tissue head and neck on outpatient basis to further characterize this mass. Patient worked with physical therapy and was able to ambulate with his walker. Patient was not interested in placement for rehab. He was amenable to going home with outpatient physical therapy. He was therefore discharged home on 06/06/2024. He was discharged on a tapering dose of prednisone was also given p.o. famotidine prescription for GI protection. He is follow-up with his primary care doctor and follow-up with neurology on outpatient basis. PCP to make decision about ordering the MRI soft tissue head and neck to further characterize this mass as seen on the CTA head and neck. Patient seen and examined prior to discharge. He had no active complaints. He still did have the blurred vision. Patient was counseled that his weakness and gait instability could be explained by the cervical and lumbar spine stenosis and degenerative disc disease and he would benefit from follow-up with spine surgery on outpatient basis. However this would not explain the blurred vision and he was counseled that he would need to follow-up with his pipeman for that. Labs and vitals reviewed. Home medication reviewed and reconciled. Of note, hospital course was also complicated by urine retention. Patient was straight cathed but still was in retention so Teresa catheter was inserted. Patient did state that he had had problems with his prostate in the past. He was therefore counseled to follow-up with urology on outpatient basis and was discharged with a Teresa catheter in situ. He was placed on p.o. Flomax 0.4 mg daily was given a prescription for this at discharge also. Physical Exam Const alert, oriented x3, no apparent distress and average body habitus Constitutional Narrative: flat affect General Appearance: cooperative and comfortable Orientation / Consciousness: awake Exam Limitations: no limitations HEENT normocephalic, head/scalp atraumatic, hearing grossly normal bilaterally, nasal mucous membranes and turbinates normal, moist oral mucous membranes and oropharynx normal Mouth: oral and palatal mucosa normal Eyes PERRL, EOMs intact bilaterally and conjunctivae normal Neck full ROM, no lymphadenopathy and supple Lymph Lymphatic: no lymphadenopathy noted and no lymphedema noted Chest inspection of chest normal Resp normal respiratory effort, normal air movement, no use of accessory muscles and clear to auscultation bilaterally Cardio regular rate, regular rhythm, S1 normal heart sound, S2 normal heart sound, no murmurs and peripheral pulses 2+ throughout GI normal to inspection, nondistended, normoactive bowel sounds, soft to palpation, non-tender and non-distended Back/Spine normal ROM Extremity normal to inspection, full ROM, normal capillary refill, no clubbing, cyanosis or edema, no calf tenderness and no pedal edema General Extremity: no tenderness to palpation of joints or extremities Skin no rashes or lesions noted General Skin Exam: no breakdown Neuro oriented x3, CN's II-XII intact bilaterally, moves all extremities, no focal motor deficits and no sensory deficits noted Sensorium / Orientation: awake and alert Speech: speech normal Motor Exam: strength 5/5 throughout and general weakness Psych mental status grossly normal, thought process normal, cooperative and affect normal Psych Narrative: Flat affect. Weight / BMI Weight Weight: 197 lb 15.602 oz Body Mass Index (BMI) 31.0 ABG / Lab / Microbiology Data 06/06/24 04:40 06/06/24 04:40 Laboratory: Laboratory Results - last 24 hr 06/06/24 04:40: WBC 12.7 H, RBC 4.85, Hgb 14.3, Hct 42.6, MCV 87.8, MCH 29.5, MCHC 33.6, RDW Std Deviation 47.4 H, RDW Coeff of Tj 14.9 H, Plt Count 226, MPV 10.2, Immature Gran % (Auto) 0.900, Neut % (Auto) 78.3 H, Lymph % (Auto) 14.9 L, [place] % (Auto) 5.6, Eos % (Auto) 0.0, Baso % (Auto) 0.3, Absolute Neuts (auto) 10.0 H, Absolute Lymphs (auto) 1.89, Nucleated RBC % 0, Sodium 134, Potassium 4.4, Chloride 105, Carbon Dioxide 19.5 L, Anion Gap 10, BUN 25 H, Creatinine 0.93, Estim Creat Clear Calc 71.11, Est GFR (MDRD) Non-Af 84, BUN/Creatinine Ratio 26.7 H, Glucose 123 H, Calcium 8.9 Microbiology: Microbiology 06/01/24 21:00 Mucosa - Nose SARS-CoV-2, Influenza & RSV (PCR) - Final Radiography Diagnostic Testing: Radiology Impression Cervical Spine MRI 06/04/24 12:21 IMPRESSION: Degenerative disc disease as described above. Reading Location: [facility] Lumbar Spine MRI 06/04/24 12:21 IMPRESSION: Degenerative disc disease as described above. Reading Location: [facility] D/C Instructions Discharge Diet: Low fat / Low cholesterol Discharge Activity: Return to Normal Activity Weight Bearing Status: Weight bearing as tolerated Call your doctor if you observe: Fever of 101 or Higher, Shortness of breath, Dizziness, Swelling in the ankles and Chest pain DC O2, CPAP, BIPAP Needs Home O2 Discharge instructions: No DC home with Oxygen: No Meaningful Use Info Meaningful Use Meaningful Use Diagnoses (Choose all that apply): None applicable Ischemic Stroke Statin Dosing Therapy Reference: STATIN DOSE THERAPY REFERENCE: * Patients > 75 years receive moderate or high dose statin therapy. * Patients 75 years or YOUNGER should receive HIGH intensity statin dose unless contraindicated. You will be required to document reason for non-treatment if statin daily dose does not meet guidelines. HIGH DOSE STATIN THERAPY DAILY Atorvastatin > than or = to 40 mg Rosuvastatin > than or = to 20 mg Amlodipine + Atorvastatin > than or = to 2.5/40 mg Ezetimibe + Simvastatin 10/80 mg Simvastatin 80mg Discharge Plan Admission Admit Date/Time: 06/02/24 16:17 Primary Reason for Your Visit: blurred vision, weakness Attending Provider: Laura Fair Primary Care Provider: Mando Sher Consulting Providers: Derian Gibbs Instructions Patient Instructions: ED FALL-from [id number] Discharge Orders/Prescriptions Prescriptions: New tamsulosin 0.4 mg Capsule 0.4 mg PO DAILY@1730 Qty: 30 2RF prednisone 10 mg tablets,dose pack See Taper PO UD Qty: 48 0RF Taper: Prednisone Taper 60 mg WITH BREAKFAST for 3 Days and 0 Hour 50 mg WITH BREAKFAST for 3 Days and 0 Hour 40 mg WITH BREAKFAST for 3 Days and 0 Hour 30 mg WITH BREAKFAST for 3 Days and 0 Hour 20 mg WITH BREAKFAST for 3 Days and 0 Hour 10 mg WITH BREAKFAST for 3 Days and 0 Hour Rx Instructions: 10 mg orally famotidine 20 mg tablet 20 mg PO DAILY Qty: 30 0RF Continued venlafaxine 150 mg capsule,extended release 24hr 300 mg PO DAILY alprazolam 0.5 mg tablet 0.5 mg PO TID PRN PRN (Reason: anxiety) gabapentin 100 mg capsule 200 mg PO TID rosuvastatin 10 mg tablet 10 mg PO QHS dorzolamide-timolol 22.3-6.8 mg/mL drops 1 drp LEFT EYE BID oxymetazoline [Afrin (oxymetazoline)] 0.05 % spray,non-aerosol 2 spray INTRANASAL Q12H PRN PRN (Reason: congestion) acetazolamide 250 mg tablet 250 mg PO BID Patient Comments: PT. SAYS HE DOES NOT LIKE HOW DEHYDRATED IT MAKES HIM doxycycline hyclate 100 mg tablet 100 mg PO BID Patient Comments: PT. STATES HE TAKES IT OCCASIONALLY BUT DOES NOT LIKE TO TAKE IT BECAUSE IT MAKES HIM SICK TO HIS STOMACH coQ10 (liposomal ubiquinol) PO DAILY meclizine 25 mg tablet 25 mg PO TID PRN multivitamin [Daily Multi-Vitamin] Tablet 1 tab PO DAILY ascorbic acid (vitamin C) 1,000 mg capsule 1 g PO DAILY Vyzulta 0.024 % drops 1 drp LEFT EYE DAILY Referrals / Follow Up: Mando Sher MD [Primary Care Provider] - Within 1 Week Jr Frnaco MD [Med Staff - Active Staff] - Within 1 Week (see to establish care for urinary retention) Augusto San MD [Med Staff - Active Staff] - Within 1 Week Disposition Disposition (needs filled in before D/C Order can be placed): Home Health Service Charges/Coding Visit Charges Inpatient E&M: 22911 Disch Hosp >30min
[2024-06-06 12:05] VITALS: BP 115/64; PULSE 70; RESP 18; TEMP 36.7; O2SAT 99
--- NOTE | 2024-06-06 15:51 | NURSING ---
Notified Alisha of need to make appointment with Dr. San in one week for spinal stenosis. [phone]
== END 2024-06-06 13:40 | disposition home health service (06) | DRG 546 ==
LOC: ED 06-02 00:20 → PCU 06-02 05:25
PROVIDERS: Admitting Provider Hospitalist; Emergency Provider Emergency Medicine; PCP Family Medicine; Visit Provider Student in an Organized Health Care Education/Training Program
DX: M35.3 Polymyalgia rheumatica (principal); E87.1 Hypo-osmolality and hyponatremia; R62.7 Adult failure to thrive; F32.A Depression, unspecified; Z68.31 Body mass index [BMI] 31.0-31.9, adult; E78.5 Hyperlipidemia, unspecified; G62.9 Polyneuropathy, unspecified; R53.81 Other malaise; H40.9 Unspecified glaucoma; E66.811 Obesity, class 1; Z79.899 Other long term (current) drug therapy
CPT/HCPCS: 36415; 70450; 70496; 70498; 70553; 71046; 72156; 72157; 72158; 80048; 81001; 84484; 85025; 85027; 85610; 85652; 85730; 86140; 87631; 93005; 97110; 97116; 97162; 97166; 97530; 97535; 99285; A9575; Q9967; A4216